=== PATIENT | male | born 1955 | race Caucasian/White ===

== ENCOUNTER 2016-12-12 22:33 | Emergency (ER) | payer MEDICAID ==
[~2016-12-12] VITALS: Ht 175.3 cm; Wt 77.0 kg
[~2016-12-12 22:33] MED LIST: ASPI-496 PO; CAPT12.52 PO; CAPT25TA3 PO; CLON0.5T PO; DIAZ5TAB PO; LOSA50TA2 PO; NEBI5TAB2 PO; OXYC10TA32 PO; OXYC15TA PO
[2016-12-12] MEDS ORDERED: CEPH-368 PO (22:48)
[2016-12-12] MEDS ORDERED: METH500T97 PO (22:48)
[2016-12-13 00:48] VITALS: BP 151/74
== END 2016-12-13 01:00 | disposition home or self-care (01) ==
LOC: ED 23:59
DX: M79.652 Pain in left thigh (principal); M79.651 Pain in right thigh; I10 Essential (primary) hypertension
CPT/HCPCS: 99284

== ENCOUNTER 2016-12-16 15:29 | Emergency (ER) | payer MEDICAID ==
[~2016-12-16] VITALS: Ht 175.3 cm; Wt 80.0 kg
[~2016-12-16 15:29] MED LIST changes: +CEPH-368 PO; +METH500T97 PO
[2016-12-16 15:36] VITALS: BP 156/92
[2016-12-16] MEDS ORDERED: OXYcodone/APAP 5/325MG TABLET ONE (15:43)
[2016-12-16] MEDS ORDERED: OXYcodone/APAP 5/325MG TABLET PO ONE (16:00)
== END 2016-12-16 17:02 | disposition home or self-care (01) ==
LOC: ED 16:50
DX: S33.5XXA Sprain of ligaments of lumbar spine, initial encounter (principal); I10 Essential (primary) hypertension; W19.XXXA Unspecified fall, initial encounter; Y93.89 Activity, other specified; Y99.8 Other external cause status; Y92.89 Other specified places as the place of occurrence of the external cause
CPT/HCPCS: 72110; 99284

== ENCOUNTER 2017-02-03 15:50 | Emergency (ER) | payer MEDICAID ==
[~2017-02-03] VITALS: Ht 175.3 cm; Wt 71.6 kg
[2017-02-03 16:09] VITALS: BP 152/108
[2017-02-03 17:08] LABS: BLOOD UREA NITROGEN 4 mg/dL (7-18)
[2017-02-03] MEDS ORDERED: OXYcodone/APAP 10/325MG TABLET PO ONE (18:30)
== END 2017-02-03 19:22 | disposition home or self-care (01) ==
LOC: ED 19:09
DX: I73.9 Peripheral vascular disease, unspecified (principal); I10 Essential (primary) hypertension; F17.200 Nicotine dependence, unspecified, uncomplicated; Z90.49 Acquired absence of other specified parts of digestive tract
CPT/HCPCS: 36415; 80048; 80307; 82040; 82330; 83735; 83880; 85025; 85730; 93005; 93970

== ENCOUNTER 2017-08-24 09:01 | Emergency (ER) | payer MEDICAID ==
[~2017-08-24] VITALS: Ht 172.7 cm; Wt 77.6 kg
[~2017-08-24 09:01] MED LIST changes: -OXYC10TA32 PO; +OXYC10TA47 PO
[2017-08-24] MEDS ORDERED: ONDANSETRON 2MG/ML, 2ML IVPush ONE (10:30)
[2017-08-24] MEDS ORDERED: MORPHINE SULFATE 4 MG/ML, 1ML IVPush PRN (10:30)
[2017-08-24] MEDS ORDERED: SODIUM CHLORIDE 0.9% 1,000ML IVBOLUS ONE (10:30)
[2017-08-24] MEDS ORDERED: ASPIRIN 81 MG TABLET CHEW PO ONE (10:30)
[2017-08-24] MEDS ORDERED: SODIUM CHLORIDE FLUSH 10ML SYR IVF ONE (10:30)
[2017-08-24] MEDS ORDERED: NITROGLYCERIN SINGLE TAB 0.4 MG SL ONE (10:40)
[2017-08-24] MEDS ORDERED: ASPIRIN 81 MG TABLET CHEW ONE (10:41)
[2017-08-24] MEDS ORDERED: MORPHINE SULFATE 4 MG/ML, 1ML ONE (10:41)
[2017-08-24] MEDS ORDERED: ONDANSETRON 2MG/ML, 2ML ONE (10:41)
[2017-08-24 10:44] LABS: BASOPHILS # (AUTO) 0.02 x10^3/uL (0-0.1); BASOPHILS % (AUTO) 0 % (0-1); EOSINOPHILS # (AUTO) 0.02 x10^3/uL (0-0.4); EOSINOPHILS % (AUTO) 0 % (1-7); LYMPHOCYTES # (AUTO) 1.57 x10^3/uL (1-3.4); LYMPHOCYTES % (AUTO) 22 % (22-44); MD NO; MEAN CORPUSCULAR HEMOGLOBIN 34.4 pg (27.5-34.5); MEAN CORPUSCULAR HGB CONC 34.6 g/dL (33.2-36.2); MEAN CORPUSCULAR VOLUME 99.3 fL (81-97); MEAN PLATELET VOLUME 6.6 fL (7.4-10.4); MONOCYTES # (AUTO) 0.51 x10^3/uL (0.2-0.8); MONOCYTES % (AUTO) 7 % (2-9); NEUTROPHILS # (AUTO) 4.91 x10^3/uL (1.8-6.8); NEUTROPHILS % (AUTO) 70 % (42-75); PLATELET COUNT 288 x10^3/uL (130-400); RED BLOOD COUNT 4.45 x10^6/uL (4.38-5.82); RED CELL DISTRIBUTION WIDTH 14.8 % (9.4-14.8)
[2017-08-24] MEDS: NITROGLYCERIN SINGLE TAB 0.4 MG SL PRN ×3 (10:47→11:16)
[2017-08-24 10:56] LABS: ALANINE AMINOTRANSFERASE 26 U/L (12-78); ALBUMIN 3.9 g/dL (3.4-5.0); ANION GAP 8 mmol/L (5-15); CALCIUM 8.1 mg/dL (8.5-10.1); CHLORIDE 95 mmol/L (98-107); CREATININE 0.47 mg/dL (0.7-1.3)
[2017-08-24 11:00] LABS: ALKALINE PHOSPHATASE 87 U/L (45-117); BILIRUBIN,TOTAL 0.7 mg/dL (0.2-1.0); TOTAL PROTEIN 7.1 g/dL (6.4-8.2); TROPONIN I < 0.015 ng/mL (0.000-0.045)
[2017-08-24] MEDS ORDERED: ALBUTEROL/IPRATROPIUM 2.5MG/0.5MG, 3 ML NPPB SCH (11:30)
[2017-08-24] MEDS ORDERED: ALBUTEROL/IPRATROPIUM 2.5MG/0.5MG, 3 ML ONE (11:47)
[2017-08-24 14:18] VITALS: BP 137/85
== END 2017-08-24 14:30 | disposition home or self-care (01) ==
LOC: ED 12:44 → EDIP 13:33 → UNDOADMIN 13:33 → ED 14:30
DX: R07.89 Other chest pain (principal); I10 Essential (primary) hypertension; E87.1 Hypo-osmolality and hyponatremia; I25.2 Old myocardial infarction; F11.10 Opioid abuse, uncomplicated; G62.9 Polyneuropathy, unspecified; F17.200 Nicotine dependence, unspecified, uncomplicated; Z90.49 Acquired absence of other specified parts of digestive tract
CPT/HCPCS: 36415; 71045; 80047; 80053; 83605; 84484; 85025; 93005; 94640; 96361; 96374; 96375; 99285; J2405; J7030; J7620

== ENCOUNTER 2018-02-22 14:42 | Inpatient (IN) | payer MEDICAID ==
[~2018-02-22] VITALS: Ht 175.3 cm; Wt 81.8 kg
[2018-02-22] MEDS ORDERED: ASPIRIN 81 MG TABLET CHEW PO ONE (15:00)
[2018-02-22 15:15] LABS: BASOPHILS # (AUTO) 0.04 x10^3/uL (0-0.1); BASOPHILS % (AUTO) 1 % (0-1); EOSINOPHILS # (AUTO) 0.04 x10^3/uL (0-0.4); EOSINOPHILS % (AUTO) 1 % (1-7); LYMPHOCYTES # (AUTO) 1.79 x10^3/uL (1-3.4); LYMPHOCYTES % (AUTO) 35 % (22-44); MD NO; MEAN CORPUSCULAR HEMOGLOBIN 34.6 pg (27.5-34.5); MEAN CORPUSCULAR HGB CONC 34.5 g/dL (33.2-36.2); MEAN CORPUSCULAR VOLUME 100.4 fL (81-97); MEAN PLATELET VOLUME 6.7 fL (7.4-10.4); MONOCYTES # (AUTO) 0.26 x10^3/uL (0.2-0.8); MONOCYTES % (AUTO) 5 % (2-9); NEUTROPHILS # (AUTO) 2.97 x10^3/uL (1.8-6.8); NEUTROPHILS % (AUTO) 58 % (42-75); PLATELET COUNT 201 x10^3/uL (130-400); RED BLOOD COUNT 4.59 x10^6/uL (4.38-5.82); RED CELL DISTRIBUTION WIDTH 14.9 % (9.4-14.8)
[2018-02-22 15:27] LABS: ALANINE AMINOTRANSFERASE 75 U/L (12-78); ALBUMIN 3.9 g/dL (3.4-5.0); ANION GAP 13 mmol/L (5-15); CALCIUM 8.6 mg/dL (8.5-10.1); CHLORIDE 106 mmol/L (98-107); CREATININE 0.86 mg/dL (0.7-1.3)
[2018-02-22] MEDS ORDERED: NITROGLYCERIN SINGLE TAB 0.4 MG SL PRN (15:30)
[2018-02-22 15:31] LABS: ALKALINE PHOSPHATASE 113 U/L (45-117); BILIRUBIN,TOTAL 0.6 mg/dL (0.2-1.0); TOTAL PROTEIN 7.2 g/dL (6.4-8.2); TROPONIN I < 0.015 ng/mL (0.000-0.045)
[2018-02-22] MEDS ORDERED: ASPIRIN 81 MG TABLET CHEW ONE (15:37)
[2018-02-22] MEDS ORDERED: NITROGLYCERIN SINGLE TAB 0.4 MG SL ONE (15:38)
[2018-02-22 15:40] LABS: INTERNATIONAL NORMALIZED RATIO 0.96 (0.93-1.1)
[2018-02-22] MEDS ORDERED: LISI-170 PO (15:46)
[2018-02-22] MEDS ORDERED: CHLO25CA9 PO (15:48)
[2018-02-22] MEDS ORDERED: OXYC20TA2 PO (15:48)
[2018-02-22] MEDS ORDERED: MORPHINE SULFATE 4 MG/ML, 1ML IVPush PRN ×2 (16:30→17:00)
[2018-02-22] MEDS ORDERED: SODIUM CHLORIDE 0.9% 1,000 ML IV SCH (16:42)
[2018-02-22] MEDS ORDERED: MORPHINE SULFATE 4 MG/ML, 1ML ONE (16:48)
[2018-02-22] MEDS ORDERED: ONDANSETRON 2MG/ML, 2ML ONE (16:53)
[2018-02-22] MEDS ORDERED: ONDANSETRON 2MG/ML, 2ML IVPush PRN (17:00)
[2018-02-22] MEDS ORDERED: NICOTINE 14MG/24 HR PATCH.TD24 TD SCH (17:00)
[2018-02-22] MEDS ORDERED: POTASSIUM CHLORIDE 20 MEQ, MAGNESIUM SULFATE 1 GM, THIAMINE 200 MG, FOLIC ACID 1 MG, MV... IV SCH (17:00)
[2018-02-22] MEDS ORDERED: ACETAMINOPHEN 325 MG TABLET PO PRN (17:00)
[2018-02-22] MEDS ORDERED: ONDANSETRON ODT 4 MG PO PRN (17:00)
[2018-02-22] MEDS ORDERED: MAALOX/HYOSCYAMINE/LIDOCAINE 45 ML BTL PO ONE (17:30)
[2018-02-22 17:41] LABS: FOLATE LEVEL 15.2 ng/mL (3.1-17.5)
[2018-02-22 18:13] VITALS: BP 161/92
[2018-02-22] MEDS ORDERED: OXYcodone IR 5MG TABLET ONE (18:16)
[2018-02-22] MEDS: HEPARIN 5,000 UNITS/ML, 1ML SQ SCH (18:23)
[2018-02-22] MEDS: OXYcodone IR 5MG TABLET PO PRN (18:23)
[2018-02-22] MEDS: SUCRALFATE 1 GM/10 ML UDC PO SCH ×2 (18:24→21:28)
[2018-02-22 18:27] VITALS: BP 161/92
[2018-02-22 19:02] VITALS: BP 156/91
[2018-02-22 19:38] LABS: TROPONIN I < 0.015 ng/mL (0.000-0.045)
[2018-02-22] MEDS: LORazepam 2 MG/ML, 1ML IVPush PRN (19:54)
[2018-02-22] MEDS: LISINOPRIL 20 MG TABLET PO SCH (20:09)
[2018-02-22] MEDS ORDERED: OxyconTIN ER 20 MG TAB.ER PO SCH (21:00)
[2018-02-23 01:15] VITALS: BP 138/81
[2018-02-23 01:37] LABS: TROPONIN I < 0.015 ng/mL (0.000-0.045)
[2018-02-23] MEDS: HEPARIN 5,000 UNITS/ML, 1ML SQ SCH ×2 (01:55→09:32)
[2018-02-23] MEDS: OXYcodone IR 5MG TABLET PO PRN ×2 (02:35→12:36)
[2018-02-23] MEDS: LORazepam 2 MG/ML, 1ML IVPush PRN ×2 (03:43→09:32)
[2018-02-23 05:44] LABS: BASOPHILS # (AUTO) 0.03 x10^3/uL (0-0.1); BASOPHILS % (AUTO) 1 % (0-1); EOSINOPHILS # (AUTO) 0.13 x10^3/uL (0-0.4); EOSINOPHILS % (AUTO) 2 % (1-7); LYMPHOCYTES # (AUTO) 2.75 x10^3/uL (1-3.4); LYMPHOCYTES % (AUTO) 40 % (22-44); MD NO; MEAN CORPUSCULAR HEMOGLOBIN 34.3 pg (27.5-34.5); MEAN CORPUSCULAR HGB CONC 33.9 g/dL (33.2-36.2); MEAN CORPUSCULAR VOLUME 101.1 fL (81-97); MEAN PLATELET VOLUME 7.4 fL (7.4-10.4); MONOCYTES # (AUTO) 0.26 x10^3/uL (0.2-0.8); MONOCYTES % (AUTO) 4 % (2-9); NEUTROPHILS # (AUTO) 3.65 x10^3/uL (1.8-6.8); NEUTROPHILS % (AUTO) 54 % (42-75); PLATELET COUNT 170 x10^3/uL (130-400); RED BLOOD COUNT 4.25 x10^6/uL (4.38-5.82); RED CELL DISTRIBUTION WIDTH 15.3 % (9.4-14.8)
[2018-02-23 05:52] LABS: ALBUMIN 3.3 g/dL (3.4-5.0); ANION GAP 8 mmol/L (5-15); CALCIUM 8.5 mg/dL (8.5-10.1); CHLORIDE 105 mmol/L (98-107)
[2018-02-23] MEDS ORDERED: ASPIRIN 325 MG TABLET EC PO SCH (06:00)
[2018-02-23 06:03] LABS: ALANINE AMINOTRANSFERASE 59 U/L (12-78); ALKALINE PHOSPHATASE 101 U/L (45-117); BILIRUBIN,TOTAL 0.4 mg/dL (0.2-1.0); CHOL/HDL RATIO 4.8; CHOLESTEROL, TOTAL 126 mg/dL (140-239); CREATININE 0.87 mg/dL (0.7-1.3); HDL CHOL % 21 % (26-37); HDL CHOLESTEROL (DIRECT) 26 mg/dL (40-60); LDL CHOLESTEROL,CALCULATED 23 mg/dL (54-169); LDL/HDL RATIO 0.9 (0.5-3.0); TOTAL PROTEIN 6.3 g/dL (6.4-8.2); TRIGLYCERIDES 386 mg/dL (50-200); VLDL CHOLESTEROL 77 mg/dL (0-25)
[2018-02-23 07:14] VITALS: BP 132/92
[2018-02-23] MEDS ORDERED: PANTOPROZOLE 40MG TABLET PO SCH (07:30)
[2018-02-23] MEDS: SUCRALFATE 1 GM/10 ML UDC PO SCH ×2 (07:41→11:32)
[2018-02-23] MEDS ORDERED: CHLORDIAZEPOXIDE 25 MG CAPSULE PO SCH (09:00)
[2018-02-23] MEDS ORDERED: REGADENOSON 0.4 MG/5 ML SYRINGE ONE (10:51)
[2018-02-23] MEDS: LISINOPRIL 20 MG TABLET PO SCH (12:35)
[2018-02-23] MEDS ORDERED: CLOP75TA52 PO (12:55)
[2018-02-23] MEDS ORDERED: CARV3.1212 PO (13:46)
[2018-02-23] MEDS ORDERED: ASPI-650 PO (13:46)
[2018-02-23] MEDS ORDERED: PANT40TA5 PO (13:46)
[2018-02-23] MEDS ORDERED: ATOR20TA9 PO (13:46)
[2018-02-23] MEDS ORDERED: SUCR1ORA5 PO (13:46)
[2018-02-23 14:02] VITALS: BP 129/89
[2018-02-23] MEDS ORDERED: CARVEDILOL 3.125 MG TABLET PO SCH (18:00)
[2018-02-23] MEDS ORDERED: ATORVASTATIN 20 MG TABLET PO SCH (21:00)
== END 2018-02-23 15:09 | disposition home or self-care (01) | DRG 392 ==
LOC: ED 16:41 → EDIP 16:42 → ED 17:13 → 5SO 17:54
PROVIDERS: ADMIT Hospitalist; ATTEND Hospitalist
DX: K21.9 Gastro-esophageal reflux disease without esophagitis (principal); E87.2 Acidosis; I25.110 Atherosclerotic heart disease of native coronary artery with unstable angina pectoris; D75.89 Other specified diseases of blood and blood-forming organs; F10.129 Alcohol abuse with intoxication, unspecified; G89.29 Other chronic pain; F41.9 Anxiety disorder, unspecified; I10 Essential (primary) hypertension; I45.10 Unspecified right bundle-branch block; I73.9 Peripheral vascular disease, unspecified; G62.9 Polyneuropathy, unspecified; F17.200 Nicotine dependence, unspecified, uncomplicated; I25.2 Old myocardial infarction; Z79.82 Long term (current) use of aspirin; Z82.49 Family history of ischemic heart disease and other diseases of the circulatory system; M54.12 Radiculopathy, cervical region
CPT/HCPCS: 36415; 71045; 78452; 80053; 80061; 80307; 82607; 82746; 83605; 83690; 83880; 84443; 84484; 85025; 85610; 85730; 93005; 93017; 96361; 96374; J1644; J2405; J2785; J3411; J3475; J3480; A9502; J2060; J7030

== ENCOUNTER 2018-05-17 12:36 | Emergency (ER) | payer MEDICAID ==
[~2018-05-17] VITALS: Ht 175.3 cm; Wt 80.5 kg
[~2018-05-17 12:36] MED LIST changes: +ASPI-650 PO; +ATOR20TA9 PO; +CARV3.1212 PO; +CHLO25CA9 PO; +CLOP75TA52 PO; +LISI-170 PO; +OXYC20TA2 PO; +PANT40TA5 PO; +SUCR1ORA5 PO
[2018-05-17 12:46] VITALS: BP 104/71
[2018-05-17 13:16] LABS: BASOPHILS # (AUTO) 0.04 x10^3/uL (0-0.1); BASOPHILS % (AUTO) 1 % (0-1); EOSINOPHILS % (AUTO) 2 % (1-7); LYMPHOCYTES # (AUTO) 1.38 x10^3/uL (1-3.4); LYMPHOCYTES % (AUTO) 29 % (22-44); MD NO; MEAN CORPUSCULAR HEMOGLOBIN 34.9 pg (27.5-34.5); MEAN CORPUSCULAR HGB CONC 34.1 g/dL (33.2-36.2); MEAN CORPUSCULAR VOLUME 102.6 fL (81-97); MEAN PLATELET VOLUME 6.7 fL (7.4-10.4); MONOCYTES # (AUTO) 0.39 x10^3/uL (0.2-0.8); MONOCYTES % (AUTO) 8 % (2-9); NEUTROPHILS # (AUTO) 2.93 x10^3/uL (1.8-6.8); NEUTROPHILS % (AUTO) 61 % (42-75); PLATELET COUNT 308 x10^3/uL (130-400); RED BLOOD COUNT 4.42 x10^6/uL (4.38-5.82); RED CELL DISTRIBUTION WIDTH 14.1 % (9.4-14.8)
[2018-05-17 13:26] LABS: INTERNATIONAL NORMALIZED RATIO 0.99 (0.93-1.1); PROTHROMBIN TIME 10.2 Seconds (9.6-11.5)
[2018-05-17 13:30] LABS: ALANINE AMINOTRANSFERASE 36 U/L (12-78); ALBUMIN 3.4 g/dL (3.4-5.0); ANION GAP 12 mmol/L (5-15); CALCIUM 8.1 mg/dL (8.5-10.1); CHLORIDE 105 mmol/L (98-107); CREATININE 0.61 mg/dL (0.7-1.3)
[2018-05-17 13:34] LABS: ALKALINE PHOSPHATASE 97 U/L (45-117); BILIRUBIN,TOTAL 0.3 mg/dL (0.2-1.0); TOTAL PROTEIN 6.8 g/dL (6.4-8.2); TROPONIN I < 0.015 ng/mL (0.000-0.045)
== END 2018-05-17 14:01 | disposition home or self-care (01) ==
LOC: ED 13:55
DX: G89.29 Other chronic pain (principal); M79.643 Pain in unspecified hand; M79.673 Pain in unspecified foot; I25.2 Old myocardial infarction; I25.10 Atherosclerotic heart disease of native coronary artery without angina pectoris; I73.9 Peripheral vascular disease, unspecified; I10 Essential (primary) hypertension; I77.9 Disorder of arteries and arterioles, unspecified; Z90.49 Acquired absence of other specified parts of digestive tract; Z79.899 Other long term (current) drug therapy
CPT/HCPCS: 36415; 71045; 80053; 80307; 83880; 84484; 85025; 85610; 93005; 99285

== ENCOUNTER 2018-08-07 14:52 | Observation (INO) | payer MEDICAID ==
[~2018-08-07] VITALS: Ht 175.3 cm; Wt 78.9 kg
[~2018-08-07 14:52] MED LIST changes: +ATOR20TA37 PO; -ATOR20TA9 PO; -NEBI5TAB2 PO; +NEBI5TAB3 PO
[2018-08-07] MEDS ORDERED: CLOP75TA52 PO (15:41)
[2018-08-07] MEDS ORDERED: LISI-167 PO (15:42)
[2018-08-07] MEDS ORDERED: MORPHINE SULFATE 4 MG/ML, 1ML ONE ×2 (15:53→17:23)
[2018-08-07] MEDS: MORPHINE SULFATE 4 MG/ML, 1ML IVPush PRN ×2 (15:57→17:26)
[2018-08-07 16:11] LABS: BASOPHILS # (AUTO) 0.04 x10^3/uL (0-0.1); BASOPHILS % (AUTO) 1 % (0-1); EOSINOPHILS # (AUTO) 0.04 x10^3/uL (0-0.4); EOSINOPHILS % (AUTO) 1 % (1-7); LYMPHOCYTES # (AUTO) 1.51 x10^3/uL (1-3.4); LYMPHOCYTES % (AUTO) 25 % (22-44); MD NO; MEAN CORPUSCULAR HEMOGLOBIN 33.5 pg (27.5-34.5); MEAN CORPUSCULAR HGB CONC 33.6 g/dL (33.2-36.2); MEAN CORPUSCULAR VOLUME 99.8 fL (81-97); MEAN PLATELET VOLUME 6.8 fL (7.4-10.4); MONOCYTES # (AUTO) 0.31 x10^3/uL (0.2-0.8); MONOCYTES % (AUTO) 5 % (2-9); NEUTROPHILS # (AUTO) 4.22 x10^3/uL (1.8-6.8); NEUTROPHILS % (AUTO) 69 % (42-75); PLATELET COUNT 274 x10^3/uL (130-400); RED BLOOD COUNT 4.48 x10^6/uL (4.38-5.82); RED CELL DISTRIBUTION WIDTH 15.7 % (9.4-14.8)
[2018-08-07 16:22] LABS: ALBUMIN 4.1 g/dL (3.4-5.0); ANION GAP 7 mmol/L (5-15); CALCIUM 8.2 mg/dL (8.5-10.1); CHLORIDE 105 mmol/L (98-107); CREATININE 0.72 mg/dL (0.7-1.3)
[2018-08-07 16:26] LABS: TROPONIN I < 0.015 ng/mL (0.000-0.045)
[2018-08-07] MEDS ORDERED: FUROSEMIDE 40 MG/4 ML IV ONE (17:00)
[2018-08-07] MEDS ORDERED: FUROSEMIDE 20 MG/2 ML ONE (17:20)
[2018-08-07] MEDS ORDERED: LIDODERM 5% PATCH TD ONE (18:30)
[2018-08-07] MEDS ORDERED: ACETAMINOPHEN 325 MG TABLET PO PRN (18:30)
[2018-08-07] MEDS ORDERED: DIPHENHYDRAMINE 25 MG CAPSULE PO PRN (18:30)
[2018-08-07] MEDS ORDERED: ENALAPRILAT 1.25 MG/ML, 2ML IVPush PRN (18:30)
[2018-08-07] MEDS ORDERED: DOCUSATE 100 MG CAPSULE PO PRN (18:30)
[2018-08-07 19:11] VITALS: BP 92/67
[2018-08-07 19:45] VITALS: BP 105/70
[2018-08-07] MEDS ORDERED: NITROGLYCERIN 0.4 MG BOTTLE (25 TABS) SL PRN (20:00)
[2018-08-07] MEDS ORDERED: NITROGLYCERIN 0.4 MG/SPRAY SL PRN (20:00)
[2018-08-07] MEDS ORDERED: OMNIPAQUE 350 MG/ML, 100ML BOTTLE ONE (20:40)
[2018-08-07 22:24] VITALS: BP 105/70
[2018-08-07 22:37] LABS: TROPONIN I < 0.015 ng/mL (0.000-0.045)
[2018-08-08] VITALS: BP 138/88
[2018-08-08] MEDS ORDERED: ENOXAPARIN 40 MG/0.4 ML SQ SCH
[2018-08-08] MEDS ORDERED: LISINOPRIL 10 MG TABLET PO SCH (09:00)
[2018-08-08] MEDS ORDERED: CHLORDIAZEPOXIDE 25 MG CAPSULE PO SCH (09:00)
[2018-08-08] MEDS ORDERED: CLOPIDOGREL 75 MG TABLET PO SCH (09:00)
== END 2018-08-08 01:27 | disposition left against medical advice (07) ==
LOC: ED 15:10 → EDIP 17:21 → 5SO 18:23
PROVIDERS: ADMIT Internal Medicine; ATTEND Internal Medicine
DX: R07.89 Other chest pain (principal); I11.9 Hypertensive heart disease without heart failure; F10.229 Alcohol dependence with intoxication, unspecified; I73.9 Peripheral vascular disease, unspecified; E78.5 Hyperlipidemia, unspecified; I25.2 Old myocardial infarction; F17.210 Nicotine dependence, cigarettes, uncomplicated; F33.9 Major depressive disorder, recurrent, unspecified; Z80.0 Family history of malignant neoplasm of digestive organs; Z82.49 Family history of ischemic heart disease and other diseases of the circulatory system
CPT/HCPCS: 36415; 71045; 71275; 80048; 82040; 83880; 84484; 85025; 85379; 93005; 93971; 96372; 96374; 96375; 96376; 99284; G0378; J1650; J1940; Q9967

== ENCOUNTER 2018-10-13 19:47 | Emergency (ER) | payer MEDICAID ==
[~2018-10-13] VITALS: Ht 175.3 cm; Wt 78.8 kg
[~2018-10-13 19:47] MED LIST changes: +LISI-167 PO
[2018-10-13] MEDS ORDERED: OXYC20TA2 PO (20:14)
[2018-10-13] MEDS ORDERED: KLONOPIN (20:14)
--- NOTE | 2018-10-13 20:16 | NUR ---
PT WAS AMBULATORY TO ED ROOM 26. A&OX4, RESP EVEN & UNLABORED, SPEECH CLEAR. STRONG ODOR OF TOBACCO SMOKE. C/O PAIN TO LT FOOT. BOTH FEET VERY DIRTY. PT STATES "IT HURTS TOO MUCH AND I CAN'T PUT WATER ON IT. I HAVEN'T HAD A SHOWER IN 4 DAYS." LT PEDAL EDEMA, PEDAL PULSE DIMINISHED. SURGICAL SCARS TO RT INNER THIGH, LT INNER THIGH, LT INNER CALF.
[2018-10-13] MEDS ORDERED: KETOROLAC 30 MG/1 ML IM ONE (20:30)
[2018-10-13] MEDS ORDERED: KETOROLAC 30 MG/1 ML ONE (20:59)
--- NOTE | 2018-10-13 21:04 | NUR ---
PT SITTING QUIETLY ON GURNEY, WATCHING TV. FRIEND IN ROOM. TORADOL GIVEN PER EMAR. PT AWAITING U/S.
[2018-10-13 21:07] VITALS: BP 130/84
--- NOTE | 2018-10-13 21:08 | NUR ---
PT TO U/S PER RYAN.
== END 2018-10-13 21:55 | disposition home or self-care (01) ==
LOC: ED 20:18
DX: G89.29 Other chronic pain (principal); M25.572 Pain in left ankle and joints of left foot; M79.662 Pain in left lower leg; G62.9 Polyneuropathy, unspecified; I25.2 Old myocardial infarction; I10 Essential (primary) hypertension; F17.210 Nicotine dependence, cigarettes, uncomplicated; Z90.49 Acquired absence of other specified parts of digestive tract
CPT/HCPCS: 93971; 96372; 99284; J1885

== ENCOUNTER 2019-10-07 11:47 | Emergency (ER) | payer MEDICAID ==
[~2019-10-07] VITALS: Ht 177.8 cm; Wt 85.0 kg
[~2019-10-07 11:47] MED LIST changes: +KLONOPIN
[2019-10-07 11:55] VITALS: BP 185/96
[2019-10-07 12:51] LABS: BASOPHILS # (AUTO) 0.04 x10^3/uL (0-0.1); BASOPHILS % (AUTO) 1 % (0-1); EOSINOPHILS # (AUTO) 0.06 x10^3/uL (0-0.4); EOSINOPHILS % (AUTO) 1 % (1-7); LYMPHOCYTES # (AUTO) 1.73 x10^3/uL (1-3.4); LYMPHOCYTES % (AUTO) 29 % (22-44); MD NO; MEAN CORPUSCULAR HEMOGLOBIN 33.8 pg (27.5-34.5); MEAN CORPUSCULAR HGB CONC 33.9 g/dL (33.2-36.2); MEAN CORPUSCULAR VOLUME 99.8 fL (81-97); MEAN PLATELET VOLUME 6.6 fL (7.4-10.4); MONOCYTES # (AUTO) 0.41 x10^3/uL (0.2-0.8); MONOCYTES % (AUTO) 7 % (2-9); NEUTROPHILS % (AUTO) 62 % (42-75); PLATELET COUNT 271 x10^3/uL (130-400); RED BLOOD COUNT 4.85 x10^6/uL (4.38-5.82); RED CELL DISTRIBUTION WIDTH 14.9 % (9.4-14.8)
[2019-10-07 12:55] LABS: ANION GAP 10 mmol/L (5-15); CALCIUM 8.8 mg/dL (8.5-10.1); CHLORIDE 98 mmol/L (98-107); CREATININE 0.82 mg/dL (0.7-1.3)
--- NOTE | 2019-10-07 13:10 | NUR ---
PT CAME IN CO OF OF PAIN ON HIS LEFT LEG WHERE HE HAD A BKA ON July. PT WONT LET ME EXAMINE LEG UNTIL HE GETS PAIN MEDS HE SAYS. ACCOMPANIED BY . CALL LIGHT WITHIN REACH
[2019-10-07] MEDS ORDERED: ACETAMINOPHEN 325 MG TABLET ONE (13:40)
--- NOTE | 2019-10-07 13:43 | NUR ---
PT COMPLAINING OF PAIN. PT REFUSED TYLENOL. PT REFUSES TO TAKE SOCKS OFF UNTIL HE GETS PAIN MEDS
[2019-10-07] MEDS ORDERED: HYDROcodone/APAP 5/325 TABLET ONE (13:55)
[2019-10-07] MEDS ORDERED: HYDROcodone/APAP 5/325 TABLET PO ONE (14:00)
[2019-10-07] MEDS ORDERED: ACETAMINOPHEN 325 MG TABLET PO ONE (14:00)
== END 2019-10-07 15:13 | disposition home or self-care (01) ==
LOC: ED 15:00
DX: L03.116 Cellulitis of left lower limb (principal); I10 Essential (primary) hypertension; J44.9 Chronic obstructive pulmonary disease, unspecified; I25.2 Old myocardial infarction; Z90.49 Acquired absence of other specified parts of digestive tract; Z89.512 Acquired absence of left leg below knee
CPT/HCPCS: 36415; 80048; 85025; 99284

== ENCOUNTER 2019-10-18 10:43 | Emergency (ER) | payer MEDICAID ==
[~2019-10-18] VITALS: Ht 177.8 cm; Wt 84.0 kg
[2019-10-18 11:37] VITALS: BP 165/94
== END 2019-10-18 12:26 | disposition home or self-care (01) ==
LOC: ED 11:50
DX: S81.012D Laceration without foreign body, left knee, subsequent encounter (principal); Z89.512 Acquired absence of left leg below knee; X58.XXXD Exposure to other specified factors, subsequent encounter
CPT/HCPCS: 99281

== ENCOUNTER 2019-11-11 11:42 | Inpatient (IN) | payer MEDICAID ==
[~2019-11-11] VITALS: Ht 177.8 cm; Wt 93.9 kg
[2019-11-11] MEDS ORDERED: SODIUM CHLORIDE FLUSH 10ML SYR IVF ONE (12:30)
[2019-11-11 12:42] LABS: BASOPHILS # (AUTO) 0.07 x10^3/uL (0-0.1); BASOPHILS % (AUTO) 1 % (0-1); EOSINOPHILS # (AUTO) 0.07 x10^3/uL (0-0.4); EOSINOPHILS % (AUTO) 1 % (1-7); LYMPHOCYTES # (AUTO) 1.68 x10^3/uL (1-3.4); LYMPHOCYTES % (AUTO) 23 % (22-44); MD NO; MEAN CORPUSCULAR HEMOGLOBIN 34.6 pg (27.5-34.5); MEAN CORPUSCULAR HGB CONC 33.8 g/dL (33.2-36.2); MEAN CORPUSCULAR VOLUME 102.2 fL (81-97); MEAN PLATELET VOLUME 6.4 fL (7.4-10.4); MONOCYTES # (AUTO) 0.44 x10^3/uL (0.2-0.8); MONOCYTES % (AUTO) 6 % (2-9); NEUTROPHILS # (AUTO) 5.12 x10^3/uL (1.8-6.8); NEUTROPHILS % (AUTO) 70 % (42-75); PLATELET COUNT 312 x10^3/uL (130-400); RED BLOOD COUNT 4.83 x10^6/uL (4.38-5.82); RED CELL DISTRIBUTION WIDTH 14.8 % (9.4-14.8)
--- NOTE | 2019-11-11 12:45 | NUR ---
PT TO ROOM PER WHEELCHAIR. PT C/O SEVERE PAIN IN RIGHT LOWER EXTREMITY. PT HAS A HISTORY OF PAD, AND BLOOD CLOT IN RIGHT LOWER LEG. EXTREMITY IS COOL AND MOTTLED, UNABLE TO PALPATE PULSES IN DP/PT OR POPLITEAL. UNABLE TO ASSESS PULSES USING DOPPLER IN POPLITEAL, DP AND PT. RIGHT AND LEFT FEMORAL PULSES ARE PALPABLE. PT IS A/OX4, WITH FROM LEN. IN TO ASSESS PATIENT.
[2019-11-11 12:50] LABS: INTERNATIONAL NORMALIZED RATIO 0.97 (0.93-1.1); PROTHROMBIN TIME 10.3 Seconds (9.6-11.5)
[2019-11-11 12:51] LABS: ALBUMIN 3.5 g/dL (3.4-5.0); ANION GAP 6 mmol/L (5-15); CALCIUM 9.1 mg/dL (8.5-10.1); CHLORIDE 104 mmol/L (98-107); CREATININE 0.68 mg/dL (0.7-1.3)
[2019-11-11] MEDS ORDERED: HYDROmorphone 2 MG/ML, 1ML ONE (12:57)
[2019-11-11] MEDS: HYDROmorphone 1 MG/ML, 1ML INJ IVPush PRN ×2 (13:40→13:58)
--- NOTE | 2019-11-11 13:45 | NUR ---
IV PLACED WITHOUT DIFF. IV PAIN MEDICATION GIVEN. SOCIAL CALLED TO INFORM STAFF THAT THE COMMUNITY DOES NOT HAVE PLACEMENT FOR THIS PATIENT IN HIS CONDITION. US OF LOWER LEG COMPLETED. MD IN TO ASSESS PATIENT. FRIEND IN ROOM TO SEE PATIENT.
[2019-11-11] MEDS ORDERED: HEPARIN 5,000 UNITS/ML, 1ML IV ONE (14:00)
[2019-11-11] MEDS ORDERED: HEPARIN 25,000 UNITS/250ML PMX 250 ML IV PRN (14:00)
--- NOTE | 2019-11-11 14:00 | NUR ---
SECOND DOSE OF DILAUDID GIVEN. ADMITTING MD AT BEDSIDE FOR EXAMINATION.
[2019-11-11] MEDS ORDERED: METOCLOPRAMIDE 5 MG/ML, 2ML IVPush PRN (14:30)
[2019-11-11] MEDS ORDERED: ONDANSETRON ODT 4 MG PO PRN (14:30)
[2019-11-11] MEDS ORDERED: hydrALAzine 20 MG/ML, 1ML IVPush PRN (14:30)
[2019-11-11] MEDS ORDERED: BACLOFEN 10 MG TABLET PO PRN (14:30)
[2019-11-11] MEDS ORDERED: ONDANSETRON 2MG/ML, 2ML IVPush PRN (14:30)
[2019-11-11] MEDS ORDERED: OXYcodone IR 5MG TABLET ONE ×2 (15:21→15:35)
[2019-11-11] MEDS: OXYcodone IR 5MG TABLET PO PRN ×3 (15:23→23:29)
--- NOTE | 2019-11-11 15:24 | NUR ---
ANSWERED CALL LIGHT. PATIENT REQUESTING PAIN MED FOR 10/10 RLE PAIN. MEDICATED PER EMAR.
[2019-11-11] MEDS ORDERED: HYDROmorphone 1 MG/ML, 1ML INJ ONE (15:35)
--- NOTE | 2019-11-11 15:57 | NUR ---
REPORT TO GEORGIE CAMARGO. PT READY FOR TRANSPORT.
[2019-11-11 16:16] VITALS: BP 150/84
[2019-11-11] MEDS: HYDROmorphone 2 MG/ML, 1ML IVPush PRN ×2 (18:41→21:58)
[2019-11-11] MEDS: NS + 20MEQ KCL 1,000 ML IV SCH (18:42)
[2019-11-11 18:51] VITALS: BP 143/86
[2019-11-11] MEDS: ACETAMINOPHEN 325 MG TABLET PO PRN (19:24)
[2019-11-11] MEDS ORDERED: APIX5TAB PO (19:38)
[2019-11-11] MEDS: NICOTINE 14MG/24 HR PATCH.TD24 TD SCH (21:30)
[2019-11-12 00:04] VITALS: BP 121/83
[2019-11-12] MEDS: HEPARIN 5,000 UNITS/ML, 1ML IV PRN ×2 (01:30→08:40)
[2019-11-12] MEDS: HYDROmorphone 2 MG/ML, 1ML IVPush PRN ×2 (02:24→05:20)
[2019-11-12 07:19] VITALS: BP 126/83
[2019-11-12 07:36] LABS: BASOPHILS # (AUTO) 0.05 x10^3/uL (0-0.1); BASOPHILS % (AUTO) 1 % (0-1); EOSINOPHILS # (AUTO) 0.12 x10^3/uL (0-0.4); EOSINOPHILS % (AUTO) 2 % (1-7); LYMPHOCYTES # (AUTO) 2.42 x10^3/uL (1-3.4); LYMPHOCYTES % (AUTO) 36 % (22-44); MD NO; MEAN CORPUSCULAR HEMOGLOBIN 34.9 pg (27.5-34.5); MEAN CORPUSCULAR HGB CONC 33.9 g/dL (33.2-36.2); MEAN PLATELET VOLUME 6.3 fL (7.4-10.4); MONOCYTES # (AUTO) 0.42 x10^3/uL (0.2-0.8); MONOCYTES % (AUTO) 6 % (2-9); NEUTROPHILS # (AUTO) 3.74 x10^3/uL (1.8-6.8); NEUTROPHILS % (AUTO) 55 % (42-75); PLATELET COUNT 292 x10^3/uL (130-400); RED BLOOD COUNT 4.44 x10^6/uL (4.38-5.82); RED CELL DISTRIBUTION WIDTH 15.1 % (9.4-14.8)
[2019-11-12 07:49] LABS: ANION GAP 5 mmol/L (5-15); CALCIUM 8.1 mg/dL (8.5-10.1); CHLORIDE 107 mmol/L (98-107); CREATININE 0.65 mg/dL (0.7-1.3)
[2019-11-12 08:15] LABS: CHOL/HDL RATIO 4.4; CHOLESTEROL, TOTAL 148 mg/dL (140-239); HDL CHOL % 23 % (26-37); HDL CHOLESTEROL (DIRECT) 34 mg/dL (40-60); LDL CHOLESTEROL,CALCULATED 83 mg/dL (54-169); LDL/HDL RATIO 2.4 (0.5-3.0); TRIGLYCERIDES 157 mg/dL (50-200); VLDL CHOLESTEROL 31 mg/dL (0-25)
[2019-11-12 09:22] VITALS: BP 128/85
[2019-11-12] MEDS: OXYcodone IR 5MG TABLET PO PRN (09:23)
[2019-11-12] MEDS: LISINOPRIL 10 MG TABLET PO SCH (09:24)
[2019-11-12] MEDS ORDERED: PROTAMINE SULFATE 10 MG/ML, 5ML ONE (10:12)
[2019-11-12] MEDS ORDERED: BACITRACIN 50,000 UNIT ONE (10:13)
[2019-11-12] MEDS ORDERED: HEPARIN 1,000 UNITS/ML, 10ML ONE (10:13)
[2019-11-12] MEDS ORDERED: THROMBIN 5,000 UNIT VIAL TP ONE (10:13)
[2019-11-12] MEDS: NS + 20MEQ KCL 1,000 ML IV SCH (11:22)
[2019-11-12] MEDS ORDERED: MIDAZOLAM 1 MG/ML, 2ML ONE (11:50)
[2019-11-12] MEDS ORDERED: ROCURONIUM 10MG/ML,5ML ONE (11:50)
[2019-11-12] MEDS ORDERED: DEXAMETHASONE 4 MG/ML, 1ML ONE (11:50)
[2019-11-12] MEDS ORDERED: PROPOFOL 10 MG/ML, 20ML ONE (11:50)
[2019-11-12] MEDS ORDERED: LIDOCAINE-MPF 2% ,5ML ONE (11:50)
[2019-11-12] MEDS ORDERED: FENTANYL PF 250 MCG/5ML ONE (11:50)
[2019-11-12] MEDS ORDERED: ONDANSETRON 2MG/ML, 2ML ONE (12:07)
[2019-11-12] MEDS ORDERED: SUCCINYLCHOLINE 20 MG/ML, 10ML ONE (12:07)
[2019-11-12] MEDS ORDERED: SUGAMMADEX 200 MG/2 ML IVPush ONE (12:07)
[2019-11-12] MEDS ORDERED: PHENYLEPHRINE 10 MG/ML ONE (12:07)
[2019-11-12] MEDS: HYDROmorphone 1 MG/ML, 1ML INJ IV PRN ×3 (15:10→15:40)
[2019-11-12] MEDS ORDERED: HYDROmorphone 2 MG/ML, 1ML ONE (15:19)
[2019-11-12] MEDS ORDERED: ACETAMINOPHEN 325 MG TABLET PO PRN (15:30)
[2019-11-12] MEDS ORDERED: OXYcodone 5 MG/5 ML ORAL.SOL UDC PO PRN (15:30)
[2019-11-12] MEDS ORDERED: ONDANSETRON 2MG/ML, 2ML IV PRN (15:30)
[2019-11-12] MEDS ORDERED: FENTANYL PF 100 MCG/2ML IV PRN (15:30)
[2019-11-12] MEDS ORDERED: LABETALOL 5MG/ML, 20ML IV PRN (15:30)
[2019-11-12] MEDS ORDERED: LORazepam 2 MG/ML, 1ML IVPush PRN (15:30)
[2019-11-12] MEDS ORDERED: MEPERIDINE/PF 25MG/ML,1ML IVPush PRN (15:30)
[2019-11-12] MEDS ORDERED: OXYcodone 5 MG/5 ML ORAL.SOL UDC ONE (15:40)
[2019-11-12] MEDS ORDERED: LABETALOL 5MG/ML, 20ML IVPush PRN (17:00)
[2019-11-12] MEDS ORDERED: NITROPRUSSIDE 50 MG in SODIUM CHLORIDE 0.9% 248 ML IV PRN (17:00)
[2019-11-12] MEDS: ENOXAPARIN 30 MG/0.3 ML SQ SCH (17:00)
[2019-11-12] MEDS: LACTATED RINGERS 1,000 ML IV SCH (17:28)
[2019-11-12] MEDS ORDERED: KETOROLAC 30 MG/1 ML ONE (18:54)
[2019-11-12] MEDS: KETOROLAC 30 MG/1 ML IVPush PRN (18:57)
[2019-11-12] MEDS: CEFAZOLIN PMX 1GM/50ML 50 ML IVPB SCH (19:56)
[2019-11-12] MEDS: ALBUTEROL SULFATE 2.5 MG/3 ML NPPB PRN (20:00)
[2019-11-12] MEDS ORDERED: LORazepam 2 MG/ML, 1ML IVPush ONE (20:00)
[2019-11-12] MEDS: NICOTINE 14MG/24 HR PATCH.TD24 TD SCH (20:41)
[2019-11-13] MEDS: KETOROLAC 30 MG/1 ML IVPush PRN ×2 (01:07→15:41)
[2019-11-13] MEDS: CEFAZOLIN PMX 1GM/50ML 50 ML IVPB SCH (03:39)
[2019-11-13 04:38] LABS: BASOPHILS # (AUTO) 0.03 x10^3/uL (0-0.1); BASOPHILS % (AUTO) 0 % (0-1); EOSINOPHILS % (AUTO) 0 % (1-7); LYMPHOCYTES # (AUTO) 0.82 x10^3/uL (1-3.4); LYMPHOCYTES % (AUTO) 10 % (22-44); MD NO; MEAN CORPUSCULAR HEMOGLOBIN 34.3 pg (27.5-34.5); MEAN CORPUSCULAR HGB CONC 33.3 g/dL (33.2-36.2); MEAN CORPUSCULAR VOLUME 103.1 fL (81-97); MEAN PLATELET VOLUME 6.6 fL (7.4-10.4); MONOCYTES # (AUTO) 0.43 x10^3/uL (0.2-0.8); MONOCYTES % (AUTO) 5 % (2-9); NEUTROPHILS # (AUTO) 7.37 x10^3/uL (1.8-6.8); NEUTROPHILS % (AUTO) 85 % (42-75); PLATELET COUNT 268 x10^3/uL (130-400); RED BLOOD COUNT 4.09 x10^6/uL (4.38-5.82); RED CELL DISTRIBUTION WIDTH 15.2 % (9.4-14.8)
[2019-11-13 04:43] LABS: ANION GAP 4 mmol/L (5-15); CALCIUM 8.3 mg/dL (8.5-10.1); CHLORIDE 103 mmol/L (98-107); CREATININE 0.72 mg/dL (0.7-1.3)
[2019-11-13 05:00] VITALS: BP 106/62
[2019-11-13] MEDS: LACTATED RINGERS 1,000 ML IV SCH (06:38)
[2019-11-13] MEDS: LISINOPRIL 10 MG TABLET PO SCH (07:46)
[2019-11-13] MEDS: ENOXAPARIN 30 MG/0.3 ML SQ SCH (08:25)
[2019-11-13] MEDS: METHYLNALTREXONE 12 MG/0.6 ML SYR SQ SCH (08:26)
[2019-11-13] MEDS: OXYcodone IR 5MG TABLET PO PRN ×4 (10:13→21:42)
[2019-11-13] MEDS: HYDROmorphone 2 MG/ML, 1ML IVPush PRN ×2 (13:41→20:03)
[2019-11-13] MEDS ORDERED: OMNIPAQUE 350 MG/ML, 150 ML BOTTLE ONE (13:43)
[2019-11-13] MEDS ORDERED: HEPARIN 25,000 UNITS/250ML PMX 250 ML ONE (15:35)
[2019-11-13] MEDS ORDERED: HEPARIN 25,000 UNITS/250ML PMX 250 ML IV PRN (16:00)
[2019-11-13] MEDS ORDERED: HEPARIN 5,000 UNITS/ML, 1ML IV ONE (16:00)
[2019-11-13 16:40] VITALS: BP 127/80
[2019-11-13] MEDS: ALBUTEROL SULFATE 2.5 MG/3 ML NPPB PRN (17:35)
[2019-11-13 20:07] VITALS: BP 125/84
[2019-11-13] MEDS: NICOTINE 14MG/24 HR PATCH.TD24 TD SCH (21:42)
[2019-11-13] MEDS: ACETAMINOPHEN 325 MG TABLET PO PRN (21:42)
[2019-11-14] MEDS: KETOROLAC 30 MG/1 ML IVPush PRN ×2 (00:40→09:35)
[2019-11-14] MEDS: HYDROmorphone 2 MG/ML, 1ML IVPush PRN ×4 (00:40→18:14)
[2019-11-14] MEDS ORDERED: CALCIUM CARBONATE 500 MG TAB.CHEW PO PRN (01:00)
[2019-11-14] MEDS ORDERED: LORazepam 0.5MG TABLET PO ONE (01:00)
[2019-11-14] MEDS: HEPARIN 5,000 UNITS/ML, 1ML IV PRN ×2 (01:11→09:32)
[2019-11-14 01:30] VITALS: BP 118/86
[2019-11-14] MEDS: OXYcodone IR 5MG TABLET PO PRN ×5 (01:48→20:10)
[2019-11-14 07:33] VITALS: BP 145/85
[2019-11-14] MEDS: LISINOPRIL 10 MG TABLET PO SCH (09:35)
[2019-11-14] MEDS ORDERED: APIXABAN 5 MG TABLET ONE (11:02)
[2019-11-14] MEDS: RIVAROXABAN 10 MG TABLET PO SCH (11:21)
[2019-11-14 14:48] VITALS: BP 144/95
[2019-11-14] MEDS: ALBUTEROL SULFATE 2.5 MG/3 ML NPPB PRN (18:57)
[2019-11-14] MEDS: SODIUM CHLORIDE 0.9% 1,000 ML IV SCH (20:00)
[2019-11-14] MEDS ORDERED: HYDROmorphone 2 MG/ML, 1ML IVPush PRN (20:00)
[2019-11-14] MEDS: ACETAMINOPHEN 325 MG TABLET PO PRN (20:10)
[2019-11-14] MEDS: NICOTINE 14MG/24 HR PATCH.TD24 TD SCH (20:11)
[2019-11-14 20:17] VITALS: BP 133/80
[2019-11-14] MEDS ORDERED: OXYcodone IR 5MG TABLET PO PRN (20:30)
[2019-11-15 02:15] VITALS: BP 151/91
[2019-11-15] MEDS: ACETAMINOPHEN 325 MG TABLET PO PRN (02:40)
[2019-11-15] MEDS: OXYcodone IR 5MG TABLET PO PRN ×2 (02:41→09:57)
[2019-11-15 05:58] LABS: ANION GAP 4 mmol/L (5-15); CALCIUM 8.7 mg/dL (8.5-10.1); CHLORIDE 102 mmol/L (98-107)
[2019-11-15 06:01] LABS: CREATININE 0.56 mg/dL (0.7-1.3)
[2019-11-15 06:45] VITALS: BP 145/93
[2019-11-15] MEDS: METHYLNALTREXONE 12 MG/0.6 ML SYR SQ SCH (07:57)
[2019-11-15] MEDS: RIVAROXABAN 10 MG TABLET PO SCH (07:57)
[2019-11-15] MEDS: LISINOPRIL 10 MG TABLET PO SCH (07:58)
[2019-11-15] MEDS: SODIUM CHLORIDE 0.9% 1,000 ML IV SCH (09:20)
[2019-11-15] MEDS ORDERED: BACL-19 PO (12:08)
[2019-11-15] MEDS ORDERED: RIVA10TA2 PO (12:08)
[2019-11-15] MEDS ORDERED: OXYC5TAB3 PO (12:08)
== END 2019-11-15 13:42 | disposition home or self-care (01) | DRG 169 ==
LOC: ED 12:24 → SUATTDRO 13:52 → EDIP 13:59 → 4NE 16:05 → CCU 11-12 16:19 → 4NE 11-13 16:30
PROVIDERS: ADMIT Hospitalist; ATTEND Internal Medicine
PROC: 04100JH Bypass Abdominal Aorta to Right Femoral Artery with Synthetic Substitute, Open Approach (ICD-10-PCS; principal; 2019-11-12 12:00)
PROC: 04CK0ZZ Extirpation of Matter from Right Femoral Artery, Open Approach (ICD-10-PCS; 2019-11-12 12:00)
DX: T82.898A Other specified complication of vascular prosthetic devices, implants and grafts, initial encounter (principal); I74.5 Embolism and thrombosis of iliac artery; J44.9 Chronic obstructive pulmonary disease, unspecified; D75.89 Other specified diseases of blood and blood-forming organs; E87.1 Hypo-osmolality and hyponatremia; F17.210 Nicotine dependence, cigarettes, uncomplicated; F32.9 Major depressive disorder, single episode, unspecified; F41.9 Anxiety disorder, unspecified; G89.29 Other chronic pain; I10 Essential (primary) hypertension; I25.10 Atherosclerotic heart disease of native coronary artery without angina pectoris; I70.202 Unspecified atherosclerosis of native arteries of extremities, left leg; I99.8 Other disorder of circulatory system; M48.061 Spinal stenosis, lumbar region without neurogenic claudication; Y83.2 Surgical operation with anastomosis, bypass or graft as the cause of abnormal reaction of the patient, or of later complication, without mention of misadventure at the time of the procedure; Z79.891 Long term (current) use of opiate analgesic; I25.2 Old myocardial infarction; Z79.01 Long term (current) use of anticoagulants; Z82.49 Family history of ischemic heart disease and other diseases of the circulatory system; Z91.14 Patient's other noncompliance with medication regimen; Z91.19 Patient's noncompliance with other medical treatment and regimen; Z89.512 Acquired absence of left leg below knee; Z95.1 Presence of aortocoronary bypass graft; Z90.49 Acquired absence of other specified parts of digestive tract; Z88.8 Allergy status to other drugs, medicaments and biological substances; Y92.89 Other specified places as the place of occurrence of the external cause
CPT/HCPCS: 36415; 74018; 75635; 75710; 80048; 80061; 82040; 82607; 84443; 85025; 85520; 85610; 85730; 87081; 93005; 93926; 94640; 96374; C1768; G0378; J0690; J1100; J1170; J1644; J1650; J1885; J2250; J2270; J2405; J2704; J2720; J3010; J3480; J7613; Q9967; J0330; J0360; J2060; J2370; J2765; J7120

== ENCOUNTER 2020-02-01 17:36 | Emergency (ER) | payer MEDICAID ==
[~2020-02-01] VITALS: Ht 177.8 cm; Wt 85.0 kg
[~2020-02-01 17:36] MED LIST changes: +APIX5TAB PO; +BACL-19 PO; -OXYC15TA PO; +OXYC15TA3 PO; +OXYC5TAB3 PO; -PANT40TA5 PO; +PANT40TA6 PO; +RIVA10TA2 PO
--- NOTE | 2020-02-01 18:11 | NUR ---
PT AGITATED IN RM, CALL LIGHT ANSWERED AND PT STATES "YA I NEED PAIN MEDICATIONS LIKE YESTERDAY" EXPLAINED TO PT THE ERMD WILL NEED TO SEE HIM AND EVALUATE PRIOR TO ORDERING PAIN MEDICATIONS.
--- NOTE | 2020-02-01 18:19 | NUR ---
PT CALLING AGAIN FOR PAIN MEDICATION, NOTE PLACED IN CHART FOR
[2020-02-01] MEDS ORDERED: SODIUM CHLORIDE FLUSH 10ML SYR IVF ONE (18:30)
[2020-02-01] MEDS ORDERED: PROMETHAZINE 25 MG/ML, 1ML IM ONE (18:30)
[2020-02-01] MEDS ORDERED: HYDROmorphone 1 MG/ML, 1ML INJ ONE ×2 (18:40→19:32)
[2020-02-01] MEDS ORDERED: PROMETHAZINE 25 MG/ML, 1ML ONE (18:40)
[2020-02-01] MEDS: HYDROmorphone 2 MG/ML, 1ML IVPush PRN ×2 (18:47→19:35)
--- NOTE | 2020-02-01 18:48 | NUR ---
PIV INITIATED, PT MEDICATED PER MAR.
--- NOTE | 2020-02-01 18:58 | NUR ---
PT RESTING ON GURNEY, PROVIDED PT WITH WARM BLANKET, MONITORS IN PLACE, SIDERAILS UP X2, CALL LIGHT WITHIN REACH. PT UNABLE TO PROVIDE URINE SAMPLE AT THIS TIME
[2020-02-01 18:59] LABS: BASOPHILS # (AUTO) 0.03 x10^3/uL (0-0.1); BASOPHILS % (AUTO) 1 % (0-1); EOSINOPHILS # (AUTO) 0.09 x10^3/uL (0-0.4); EOSINOPHILS % (AUTO) 1 % (1-7); LYMPHOCYTES # (AUTO) 1.98 x10^3/uL (1-3.4); LYMPHOCYTES % (AUTO) 30 % (22-44); MD NO; MEAN CORPUSCULAR HEMOGLOBIN 32.1 pg (27.5-34.5); MEAN CORPUSCULAR HGB CONC 33.3 g/dL (33.2-36.2); MEAN PLATELET VOLUME 6.9 fL (7.4-10.4); MONOCYTES # (AUTO) 0.53 x10^3/uL (0.2-0.8); MONOCYTES % (AUTO) 8 % (2-9); NEUTROPHILS % (AUTO) 60 % (42-75); PLATELET COUNT 313 x10^3/uL (130-400); RED BLOOD COUNT 5.25 x10^6/uL (4.38-5.82); RED CELL DISTRIBUTION WIDTH 14.6 % (9.4-14.8)
[2020-02-01 19:10] LABS: INTERNATIONAL NORMALIZED RATIO 0.93 (0.93-1.1); PROTHROMBIN TIME 9.8 Seconds (9.6-11.5)
[2020-02-01 19:11] LABS: ALANINE AMINOTRANSFERASE 19 U/L (12-78); ALBUMIN 3.7 g/dL (3.4-5.0); ANION GAP 8 mmol/L (5-15); CALCIUM 8.6 mg/dL (8.5-10.1); CHLORIDE 103 mmol/L (98-107); CREATININE 0.95 mg/dL (0.7-1.3)
[2020-02-01 19:13] LABS: ALKALINE PHOSPHATASE 125 U/L (45-117); BILIRUBIN,TOTAL 0.3 mg/dL (0.2-1.0); TOTAL PROTEIN 7.6 g/dL (6.4-8.2)
--- NOTE | 2020-02-01 19:31 | NUR ---
urine sample sent
[2020-02-01 19:36] VITALS: BP 160/99
--- NOTE | 2020-02-01 19:36 | NUR ---
PT MEDICATED PER MAR. PT TO CT
[2020-02-01 19:39] LABS: MICROSCOPIC NOT IND
[2020-02-01] MEDS ORDERED: OMNIPAQUE 350 MG/ML, 100ML BOTTLE ONE (19:50)
[2020-02-01] MEDS ORDERED: OXYcodone/APAP 5/325MG TABLET ONE (20:29)
[2020-02-01] MEDS ORDERED: OXYcodone/APAP 5/325MG TABLET PO ONE (20:30)
== END 2020-02-01 20:39 | disposition home or self-care (01) ==
LOC: ED 20:15
DX: R10.84 Generalized abdominal pain (principal); G89.29 Other chronic pain; K76.0 Fatty (change of) liver, not elsewhere classified; I10 Essential (primary) hypertension; J44.9 Chronic obstructive pulmonary disease, unspecified; I25.2 Old myocardial infarction; F17.200 Nicotine dependence, unspecified, uncomplicated; Z90.49 Acquired absence of other specified parts of digestive tract; Z86.79 Personal history of other diseases of the circulatory system
CPT/HCPCS: 36415; 74177; 80053; 81003; 83605; 83690; 85025; 85610; 85730; 87040; 96372; 96374; 96375; 99285; J1170; J2550; Q9967

== ENCOUNTER 2020-02-03 14:55 | Emergency (ER) | payer MEDICAID ==
[~2020-02-03] VITALS: Ht 180.3 cm; Wt 84.1 kg
[~2020-02-03 14:55] MED LIST changes: +PANT40TA5 PO; -PANT40TA6 PO
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
--- NOTE | 2020-02-03 15:40 | NUR ---
PATIENT SEEN HERE 2 DAYS AGO FOR SAME SYMPTOMS. IMAGING TAKEN THEN
[2020-02-03] MEDS ORDERED: ONDANSETRON ODT 4 MG ONE (15:48)
[2020-02-03] MEDS ORDERED: HYDROmorphone 1 MG/ML, 1ML INJ ONE (15:48)
[2020-02-03 15:56] VITALS: BP 134/98
--- NOTE | 2020-02-03 15:57 | NUR ---
PATIENT MEDICATED PER EMAR
[2020-02-03] MEDS ORDERED: HYDROmorphone 2 MG/ML, 1ML IM ONE (16:00)
[2020-02-03] MEDS ORDERED: ONDANSETRON ODT 4 MG PO ONE (16:00)
--- NOTE | 2020-02-03 16:16 | NUR ---
TO ROOM FOR EVAL
--- NOTE | 2020-02-03 16:30 | NUR ---
Patient/Caregiver given discharge instructions and they have confirmed that they understand the instructions. Patient wheeled self out to discharge with spouse.
== END 2020-02-03 16:35 | disposition home or self-care (01) ==
LOC: ED 16:10
DX: G89.29 Other chronic pain (principal); R10.84 Generalized abdominal pain; I10 Essential (primary) hypertension; I25.2 Old myocardial infarction; J44.9 Chronic obstructive pulmonary disease, unspecified; F17.200 Nicotine dependence, unspecified, uncomplicated; Z90.49 Acquired absence of other specified parts of digestive tract
CPT/HCPCS: 96372; 99283; J1170; Q0162

== ENCOUNTER 2020-04-12 14:43 | Emergency (ER) | payer MEDICAID ==
[~2020-04-12] VITALS: Ht 177.8 cm; Wt 87.0 kg
[2020-04-12 15:04] VITALS: BP 128/91
--- NOTE | 2020-04-12 15:04 | NUR ---
FIRST CONTACT WITH PT. PT C/O BILATERAL LEGS PAIN AND STATED "MY ABDOMINAL AREA IS REALLY HARD." PT DENIES N/V/D. LBM TODAY AND IT WAS NORMAL PER PT. PT'S AOX4. RESPS EVEN AND UNLABORED. BP/SPO2 MONITORS IN PLACE. CALL LIGHT WITHIN REACH. EDMD AT BEDSIDE EVALUATING AT THIS TIME.
--- NOTE | 2020-04-12 15:15 | NUR ---
PT LEFT AMA.
== END 2020-04-12 15:16 | disposition left against medical advice (07) ==
LOC: ED 14:59
DX: G89.29 Other chronic pain (principal); M79.661 Pain in right lower leg; M79.662 Pain in left lower leg; I10 Essential (primary) hypertension; I25.2 Old myocardial infarction; J44.9 Chronic obstructive pulmonary disease, unspecified; F17.200 Nicotine dependence, unspecified, uncomplicated; Z89.512 Acquired absence of left leg below knee; Z90.49 Acquired absence of other specified parts of digestive tract
CPT/HCPCS: 99281

== ENCOUNTER 2020-09-14 18:43 | Emergency (ER) | payer MEDICAID ==
[~2020-09-14] VITALS: Ht 177.8 cm; Wt 88.0 kg
[~2020-09-14 18:43] MED LIST changes: -OXYC5TAB3 PO; +OXYC5TAB98 PO; -PANT40TA5 PO; +PANT40TA6 PO
--- NOTE | 2020-09-14 19:00 | NUR ---
THIS IS A 65Y M THAT COMES IN FOR BILAT LEG PAIN. PT STS HE SEES VASCULAR AND HAS AN APPOINTMENT "IN [place] WITH A PAIN DOCTOR" PT IS A/O X4 CONNECTED TO MONITORING VSS, HTN NOTED PT HAS HX OF HTN BUT DOESN'T ELABORATE IF HE IS COMPLIANT WITH MEDICATION FOR THIS.
[2020-09-14] MEDS ORDERED: HYDROcodone/APAP 10/325 MG TABLET ONE (19:27)
[2020-09-14] MEDS ORDERED: HYDROcodone/APAP 10/325 MG TABLET PO ONE (19:30)
--- NOTE | 2020-09-14 19:31 | NUR ---
PT MEDICATED PER MAR
--- NOTE | 2020-09-14 19:39 | NUR ---
PT TO US AT THIS TIME
[2020-09-14 21:33] VITALS: BP 161/100
--- NOTE | 2020-09-14 21:34 | NUR ---
Patient/Caregiver given discharge instructions and they have confirmed that they understand the instructions. Patient wheeled to dc desk in personal chair.
== END 2020-09-14 21:35 | disposition home or self-care (01) ==
LOC: ED 20:31
DX: G89.29 Other chronic pain (principal); M79.662 Pain in left lower leg; M79.661 Pain in right lower leg; I10 Essential (primary) hypertension; J44.9 Chronic obstructive pulmonary disease, unspecified; I25.2 Old myocardial infarction; E87.1 Hypo-osmolality and hyponatremia; F17.200 Nicotine dependence, unspecified, uncomplicated; Z90.49 Acquired absence of other specified parts of digestive tract
CPT/HCPCS: 93970; 99284

== ENCOUNTER 2020-09-23 18:42 | Inpatient (IN) | payer MEDICAID ==
[~2020-09-23] VITALS: Ht 177.8 cm; Wt 83.7 kg
[~2020-09-23 18:42] MED LIST changes: -ASPI-650 PO; +ASPI325T20 PO
[2020-09-23] MEDS ORDERED: LIDOCAINE-MPF 1%, 5ML INFIL ONE (19:00)
[2020-09-23] MEDS ORDERED: SODIUM CHLORIDE FLUSH 10ML SYR IVF ONE (19:00)
[2020-09-23] MEDS ORDERED: ONDANSETRON 2MG/ML, 2ML IVPush ONE (19:00)
[2020-09-23] MEDS ORDERED: SODIUM CHLORIDE 0.9% 1,000ML IVBOLUS ONE (19:00)
[2020-09-23] MEDS ORDERED: MORPHINE SULFATE 4 MG/ML, 1ML ONE ×2 (19:17→20:53)
[2020-09-23] MEDS ORDERED: LIDOCAINE-MPF 1%, 5ML ONE (19:17)
[2020-09-23] MEDS ORDERED: ONDANSETRON 2MG/ML, 2ML ONE (19:17)
--- NOTE | 2020-09-23 19:19 | NUR ---
ERP AT BS. XR AT BS.
[2020-09-23] MEDS: MORPHINE SULFATE 4 MG/ML, 1ML IV PRN ×2 (19:44→20:55)
--- NOTE | 2020-09-23 19:59 | NUR ---
PT MEDICATED PER ORDERS. IV BOLUS INFUSING. LABS AND BLOOD CX DRAWN. PT VOIDED IN URINAL WITHOUT DIFFICULTY.
[2020-09-23 20:00] LABS: BASOPHILS % (AUTO) 1 % (0-1); EOSINOPHILS % (AUTO) 1 % (1-7); LYMPHOCYTES % (AUTO) 20 % (22-44); MEAN CORPUSCULAR HEMOGLOBIN 35.8 pg (27.5-34.5); MEAN CORPUSCULAR HGB CONC 34.8 g/dL (33.2-36.2); MEAN PLATELET VOLUME 6.7 fL (7.4-10.4); MONOCYTES % (AUTO) 8 % (2-9); NEUTROPHILS % (AUTO) 70 % (42-75); PLATELET COUNT 272 x10^3/uL (130-400); RED BLOOD COUNT 4.52 x10^6/uL (4.38-5.82); RED CELL DISTRIBUTION WIDTH 13.4 % (9.4-14.8)
[2020-09-23 20:07] LABS: ALANINE AMINOTRANSFERASE 19 U/L (12-78); ALBUMIN 3.7 g/dL (3.4-5.0); ANION GAP 5 mmol/L (5-15); CALCIUM 8.8 mg/dL (8.5-10.1); CHLORIDE 97 mmol/L (98-107)
[2020-09-23 20:10] LABS: ALKALINE PHOSPHATASE 121 U/L (45-117); BILIRUBIN,TOTAL 0.5 mg/dL (0.2-1.0); CREATININE 0.76 mg/dL (0.7-1.3); TOTAL PROTEIN 7.5 g/dL (6.4-8.2)
[2020-09-23] MEDS ORDERED: VANCOMYCIN PER PHARMACY MC PRN ×2 (20:30→23:00)
[2020-09-23] MEDS ORDERED: AMPICILLIN/SULBACTAM 3 GM in SODIUM CHLORIDE 0.9% 100 ML IV ONE (20:30)
[2020-09-23 20:33] LABS: MD SCAN
[2020-09-23] MEDS ORDERED: VANCOMYCIN 2,200 MG in SODIUM CHLORIDE 0.9% 500 ML IV ONE (21:00)
--- NOTE | 2020-09-23 21:02 | NUR ---
PT MEDICATED WITH ANOTHER DOSE OF MORPHINE FOR R HAND PAIN. ORTHO SURGEON WAS IN TO SEE PT. IV ABX INFUSING. RV'WD NPO STATUS WITH PT.
[2020-09-23] MEDS ORDERED: APIX5TAB PO (21:40)
--- NOTE | 2020-09-23 21:41 | NUR ---
ADMITTING MD WAS IN TO SEE PT. PLAN TO ADMIT PT FOR IV ABX. NO SURGERY AT THIS TIME. PT UNDERSTANDS POC.
[2020-09-23 22:17] VITALS: BP 157/98
[2020-09-23] MEDS: [UNRECOGNIZED DRUG - REMARK] MC SCH (23:00)
[2020-09-23] MEDS ORDERED: DOCUSATE 100 MG CAPSULE PO PRN (23:00)
[2020-09-23] MEDS ORDERED: IBUPROFEN 600 MG TABLET PO PRN (23:00)
[2020-09-23] MEDS ORDERED: ACETAMINOPHEN 325 MG TABLET PO PRN (23:00)
[2020-09-23] MEDS ORDERED: ENALAPRILAT 1.25 MG/ML, 2ML IVPush PRN (23:00)
[2020-09-23] MEDS ORDERED: MELATONIN 5 MG TABLET PO PRN (23:00)
[2020-09-23] MEDS: HYDROmorphone 2 MG/ML, 1ML IVPush PRN ×2 (23:20→23:36)
[2020-09-24] MEDS: HYDROmorphone 2 MG/ML, 1ML IVPush PRN ×2 (02:29→05:27)
[2020-09-24 02:32] VITALS: BP 119/79
[2020-09-24] MEDS ORDERED: AMPICILLIN/SULBACTAM 3 GM in SODIUM CHLORIDE 0.9% 100 ML IV SCH (05:00)
[2020-09-24 05:43] LABS: BASOPHILS % (AUTO) 1 % (0-1); EOSINOPHILS % (AUTO) 1 % (1-7); LYMPHOCYTES % (AUTO) 20 % (22-44); MEAN CORPUSCULAR HEMOGLOBIN 35.9 pg (27.5-34.5); MEAN CORPUSCULAR HGB CONC 34.8 g/dL (33.2-36.2); MEAN PLATELET VOLUME 6.8 fL (7.4-10.4); MONOCYTES % (AUTO) 5 % (2-9); NEUTROPHILS % (AUTO) 74 % (42-75); PLATELET COUNT 227 x10^3/uL (130-400); RED BLOOD COUNT 4.02 x10^6/uL (4.38-5.82); RED CELL DISTRIBUTION WIDTH 13.5 % (9.4-14.8)
[2020-09-24 05:53] LABS: ANION GAP 6 mmol/L (5-15); CALCIUM 8.1 mg/dL (8.5-10.1); CHLORIDE 105 mmol/L (98-107)
[2020-09-24 06:19] LABS: MD SCAN
[2020-09-24] MEDS: [UNRECOGNIZED DRUG - REMARK] MC SCH (07:17)
[2020-09-24 07:40] VITALS: BP 132/82
[2020-09-24] MEDS ORDERED: LISINOPRIL 10 MG TABLET PO SCH (09:00)
[2020-09-24] MEDS ORDERED: OXYcodone IR 5MG TABLET ONE (09:26)
[2020-09-24] MEDS: OXYcodone IR 5MG TABLET PO PRN ×2 (09:28→13:36)
[2020-09-24 13:31] VITALS: BP 113/76
[2020-09-24] MEDS ORDERED: DOXY100T PO (14:39)
[2020-09-24] MEDS ORDERED: AMOX1TAB64 PO (14:39)
[2020-09-24] MEDS ORDERED: VANCOMYCIN 1,600 MG in SODIUM CHLORIDE 0.9% 250 ML IV SCH (15:00)
[2020-09-24] MEDS ORDERED: APIXABAN 5 MG TABLET PO SCH (17:00)
== END 2020-09-24 14:15 | disposition left against medical advice (07) | DRG 383 ==
LOC: ED 20:40 → 4NE 22:14 → ED 22:45 → 4NE 22:45
PROVIDERS: ADMIT Family Medicine; ATTEND Internal Medicine
DX: L03.011 Cellulitis of right finger (principal); M65.141 Other infective (teno)synovitis, right hand; D68.59 Other primary thrombophilia; D75.89 Other specified diseases of blood and blood-forming organs; E16.2 Hypoglycemia, unspecified; E87.1 Hypo-osmolality and hyponatremia; F11.20 Opioid dependence, uncomplicated; F41.9 Anxiety disorder, unspecified; I10 Essential (primary) hypertension; G89.29 Other chronic pain; I73.9 Peripheral vascular disease, unspecified; M79.89 Other specified soft tissue disorders; F17.213 Nicotine dependence, cigarettes, with withdrawal; I25.10 Atherosclerotic heart disease of native coronary artery without angina pectoris; I25.2 Old myocardial infarction; Z79.01 Long term (current) use of anticoagulants; Z80.9 Family history of malignant neoplasm, unspecified; Z82.49 Family history of ischemic heart disease and other diseases of the circulatory system; Z86.718 Personal history of other venous thrombosis and embolism; Z89.512 Acquired absence of left leg below knee; Z91.19 Patient's noncompliance with other medical treatment and regimen; Z90.49 Acquired absence of other specified parts of digestive tract
CPT/HCPCS: 36415; 80048; 80053; 82607; 83605; 84443; 85025; 87040; 96361; 96374; 96376; 99285; G0378; J0295; J1170; J2405; J3370; J2270; J7030; J7040

== ENCOUNTER 2020-09-25 13:41 | Inpatient (IN) | payer MEDICAID ==
[~2020-09-25] VITALS: Ht 177.8 cm; Wt 90.0 kg
[~2020-09-25 13:41] MED LIST changes: +AMOX1TAB64 PO; +DOXY100T PO
--- NOTE | 2020-09-25 14:28 | NUR ---
PT C/O RIGHT POINTER FINGER PAIN THAT STARTED 3-4 DAYS AGO. PT STATED THE FINGER STARTED HURTING AND THEN CONTINUED TO SWELL. PT STATES NO INJURIES OR BUG BITE THAT HE IS AWARE OF. PT WAS ADMITTED TO [facility] 2 DAYS AGO BUT HAD TO LEAVE TO PAY HIS RENT. PAIN 05/26.
[2020-09-25] MEDS ORDERED: SODIUM CHLORIDE 0.9% 1,000ML IVBOLUS ONE (14:30)
[2020-09-25] MEDS ORDERED: CLINDAMYCIN PMX 900MG/50ML 50 ML IVPB ONE (14:30)
[2020-09-25] MEDS ORDERED: SODIUM CHLORIDE FLUSH 10ML SYR IVF ONE (14:30)
[2020-09-25] MEDS ORDERED: HYDROmorphone 1 MG/ML, 1ML INJ ONE (15:24)
[2020-09-25] MEDS ORDERED: HYDROmorphone 1 MG/ML, 1ML INJ IV ONE (15:30)
[2020-09-25] MEDS ORDERED: CLINDAMYCIN PMX 900MG/50ML 50 ML ONE (15:34)
[2020-09-25 15:45] LABS: BASOPHILS % (AUTO) 0 % (0-1); EOSINOPHILS % (AUTO) 1 % (1-7); LYMPHOCYTES % (AUTO) 16 % (22-44); MEAN CORPUSCULAR HEMOGLOBIN 35.8 pg (27.5-34.5); MEAN CORPUSCULAR HGB CONC 34.6 g/dL (33.2-36.2); MEAN PLATELET VOLUME 6.8 fL (7.4-10.4); MONOCYTES % (AUTO) 6 % (2-9); NEUTROPHILS % (AUTO) 76 % (42-75); PLATELET COUNT 259 x10^3/uL (130-400); RED BLOOD COUNT 4.29 x10^6/uL (4.38-5.82); RED CELL DISTRIBUTION WIDTH 13.3 % (9.4-14.8)
[2020-09-25 15:47] LABS: MD NO
[2020-09-25 15:50] LABS: HCT (SEDRATE) 43.7 % (39.2-51.8)
[2020-09-25 15:58] LABS: ALANINE AMINOTRANSFERASE 34 U/L (12-78); ALBUMIN 3.4 g/dL (3.4-5.0); ANION GAP 7 mmol/L (5-15); CALCIUM 8.9 mg/dL (8.5-10.1); CHLORIDE 99 mmol/L (98-107); CREATININE 0.68 mg/dL (0.7-1.3)
[2020-09-25] MEDS ORDERED: SODIUM CHLORIDE FLUSH 10ML SYR IVF PRN (16:00)
[2020-09-25 16:04] LABS: ALKALINE PHOSPHATASE 137 U/L (45-117); BILIRUBIN,TOTAL 0.4 mg/dL (0.2-1.0); TOTAL PROTEIN 7.5 g/dL (6.4-8.2)
--- NOTE | 2020-09-25 16:04 | NUR ---
REPORT TO MARY JO BUTLER
[2020-09-25] MEDS ORDERED: BUPIVACAINE/PF 0.25% ONE (16:17)
[2020-09-25] MEDS ORDERED: VANCOMYCIN PER PHARMACY MC PRN (16:30)
[2020-09-25] MEDS ORDERED: FENTANYL PF 250 MCG/5ML ONE (17:21)
[2020-09-25] MEDS ORDERED: MIDAZOLAM 1 MG/ML, 2ML ONE (17:21)
[2020-09-25] MEDS ORDERED: SUCCINYLCHOLINE 20 MG/ML, 10ML ONE (17:23)
[2020-09-25] MEDS ORDERED: PROPOFOL 10 MG/ML, 20ML ONE (17:23)
[2020-09-25] MEDS ORDERED: METOCLOPRAMIDE 5 MG/ML, 2ML IVPush PRN (17:30)
[2020-09-25] MEDS ORDERED: ACETAMINOPHEN 325 MG TABLET PO PRN (17:30)
[2020-09-25] MEDS ORDERED: hydrALAzine 20 MG/ML, 1ML IV PRN (17:30)
[2020-09-25] MEDS ORDERED: OXYcodone 5 MG/5 ML ORAL.SOL UDC PO PRN (17:30)
[2020-09-25] MEDS ORDERED: PROMETHAZINE 25 MG/ML, 1ML IVPush PRN (17:30)
[2020-09-25] MEDS ORDERED: LABETALOL 5MG/ML, 20ML IV PRN (17:30)
[2020-09-25] MEDS ORDERED: ONDANSETRON 2MG/ML, 2ML ONE (17:40)
[2020-09-25] MEDS ORDERED: POLYETHYLENE GLYCOL 17 GM PACKET PO PRN (18:00)
[2020-09-25] MEDS ORDERED: IBUPROFEN 600 MG TABLET PO PRN (18:00)
[2020-09-25] MEDS ORDERED: BISACODYL 10 MG SUPP PR PRN (18:00)
[2020-09-25] MEDS ORDERED: FENTANYL PF 100 MCG/2ML ONE (18:12)
[2020-09-25] MEDS ORDERED: OXYcodone 5 MG/5 ML ORAL.SOL UDC ONE (18:13)
[2020-09-25] MEDS ORDERED: HYDROmorphone 2 MG/ML, 1ML ONE (18:13)
[2020-09-25] MEDS: FENTANYL PF 100 MCG/2ML IV PRN ×2 (18:14→18:35)
[2020-09-25] MEDS ORDERED: MEPERIDINE/PF 25MG/ML,1ML ONE (18:15)
[2020-09-25] MEDS ORDERED: MEPERIDINE/PF 25MG/0.5ML IVPush PRN (18:30)
[2020-09-25] MEDS: HYDROmorphone 1 MG/ML, 1ML INJ IVPush PRN ×4 (18:35→18:53)
[2020-09-25] MEDS ORDERED: LABETALOL 5MG/ML, 20ML ONE (18:44)
[2020-09-25] MEDS ORDERED: LORazepam 2 MG/ML, 1ML ONE (18:55)
[2020-09-25] MEDS: LORazepam 2 MG/ML, 1ML IVPush PRN ×2 (18:57→19:08)
[2020-09-25] MEDS: PIPERACILLIN/TAZO/PMX 3.375GM 50 ML IV SCH ×2 (19:45→23:52)
[2020-09-25] MEDS: MELATONIN 5 MG TABLET PO PRN (22:39)
[2020-09-25] MEDS: NICOTINE 14MG/24 HR PATCH.TD24 TD SCH (22:40)
[2020-09-25 23:29] VITALS: BP 105/73
[2020-09-25] MEDS: HYDROcodone/APAP 10/325 MG TABLET PO PRN (23:55)
[2020-09-26 03:54] VITALS: BP 100/59
[2020-09-26 06:14] VITALS: BP 119/78
[2020-09-26] MEDS: PIPERACILLIN/TAZO/PMX 3.375GM 50 ML IV SCH ×3 (06:19→18:12)
[2020-09-26] MEDS: HYDROcodone/APAP 10/325 MG TABLET PO PRN ×3 (06:19→18:30)
[2020-09-26] MEDS ORDERED: ALBUTEROL HFA 90 MCG/SPRAY INH PRN (07:30)
[2020-09-26 07:56] LABS: BASOPHILS % (AUTO) 1 % (0-1); EOSINOPHILS % (AUTO) 2 % (1-7); LYMPHOCYTES % (AUTO) 27 % (22-44); MEAN CORPUSCULAR HEMOGLOBIN 35.4 pg (27.5-34.5); MEAN CORPUSCULAR HGB CONC 34.1 g/dL (33.2-36.2); MEAN PLATELET VOLUME 6.7 fL (7.4-10.4); MONOCYTES % (AUTO) 7 % (2-9); NEUTROPHILS % (AUTO) 63 % (42-75); PLATELET COUNT 220 x10^3/uL (130-400); RED BLOOD COUNT 3.62 x10^6/uL (4.38-5.82); RED CELL DISTRIBUTION WIDTH 13.1 % (9.4-14.8)
[2020-09-26 07:57] LABS: ANION GAP 6 mmol/L (5-15); CALCIUM 8.4 mg/dL (8.5-10.1); CHLORIDE 102 mmol/L (98-107); CREATININE 0.73 mg/dL (0.7-1.3)
[2020-09-26 08:09] LABS: MD NO
[2020-09-26] MEDS: SENNA/DOCUSATE TABLET PO SCH (08:18)
[2020-09-26] MEDS ORDERED: POLYETHYLENE GLYCOL 17 GM PACKET PO ONE (09:00)
[2020-09-26] MEDS: FLUTICASONE FUROATE 100MCG/INH INH SCH (09:01)
[2020-09-26] MEDS: MORPHINE SULFATE 4 MG/ML, 1ML IVPush PRN ×2 (09:38→17:43)
[2020-09-26] MEDS ORDERED: VANCOMYCIN 2,300 MG in SODIUM CHLORIDE 0.9% 500 ML IV ONE (12:00)
[2020-09-26 12:55] VITALS: BP 123/72
[2020-09-26] MEDS: NICOTINE 14MG/24 HR PATCH.TD24 TD SCH (16:01)
[2020-09-26 19:22] VITALS: BP 145/89
[2020-09-26] MEDS ORDERED: DAPTOMYCIN 370 MG in SODIUM CHLORIDE 0.9% 100 ML IV SCH (20:30)
[2020-09-26] MEDS: OXYcodone/APAP 5/325MG TABLET PO PRN (21:53)
[2020-09-27] MEDS ORDERED: VANCOMYCIN 1,800 MG in SODIUM CHLORIDE 0.9% 250 ML IV SCH
[2020-09-27] MEDS: PIPERACILLIN/TAZO/PMX 3.375GM 50 ML IV SCH ×4 (00:35→17:36)
[2020-09-27 00:41] VITALS: BP 154/85
[2020-09-27] MEDS: OXYcodone/APAP 5/325MG TABLET PO PRN ×6 (02:12→22:54)
[2020-09-27 07:04] VITALS: BP 142/80
[2020-09-27] MEDS: FLUTICASONE FUROATE 100MCG/INH INH SCH (09:00)
[2020-09-27] MEDS: SENNA/DOCUSATE TABLET PO SCH (09:26)
[2020-09-27 13:12] VITALS: BP 152/88
[2020-09-27] MEDS: MORPHINE SULFATE 4 MG/ML, 1ML IVPush PRN ×2 (13:59→22:33)
[2020-09-27] MEDS: NICOTINE 14MG/24 HR PATCH.TD24 TD SCH (17:36)
[2020-09-27 19:07] VITALS: BP 152/83
[2020-09-27] MEDS: DAPTOMYCIN 400 MG in SODIUM CHLORIDE 0.9% 100 ML IV SCH (21:13)
[2020-09-28] MEDS: PIPERACILLIN/TAZO/PMX 3.375GM 50 ML IV SCH ×4 (00:07→18:11)
[2020-09-28 02:25] VITALS: BP 165/84
[2020-09-28] MEDS: OXYcodone/APAP 5/325MG TABLET PO PRN ×5 (02:55→20:23)
[2020-09-28 05:37] LABS: ANION GAP 6 mmol/L (5-15); BASOPHILS % (AUTO) 2 % (0-1); CALCIUM 8.7 mg/dL (8.5-10.1); CHLORIDE 107 mmol/L (98-107); CREATININE 0.69 mg/dL (0.7-1.3); EOSINOPHILS % (AUTO) 2 % (1-7); LYMPHOCYTES % (AUTO) 35 % (22-44); MEAN CORPUSCULAR HEMOGLOBIN 35.4 pg (27.5-34.5); MEAN CORPUSCULAR HGB CONC 34.3 g/dL (33.2-36.2); MEAN PLATELET VOLUME 6.5 fL (7.4-10.4); MONOCYTES % (AUTO) 7 % (2-9); NEUTROPHILS % (AUTO) 54 % (42-75); PLATELET COUNT 303 x10^3/uL (130-400); RED BLOOD COUNT 4.05 x10^6/uL (4.38-5.82); RED CELL DISTRIBUTION WIDTH 13.1 % (9.4-14.8)
[2020-09-28 05:41] LABS: MD NO
[2020-09-28] MEDS: MORPHINE SULFATE 4 MG/ML, 1ML IVPush PRN ×5 (06:27→22:16)
[2020-09-28] MEDS: FLUTICASONE FUROATE 100MCG/INH INH SCH (07:34)
[2020-09-28 08:00] VITALS: BP 173/91
[2020-09-28] MEDS: SENNA/DOCUSATE TABLET PO SCH (08:04)
[2020-09-28] MEDS: morphine SULFATE 10 MG/ML, 1ML IVPush ONE ×2 (09:13→10:00)
[2020-09-28 12:24] VITALS: BP 170/98
[2020-09-28] MEDS: NICOTINE 14MG/24 HR PATCH.TD24 TD SCH (16:22)
[2020-09-28 19:11] VITALS: BP 162/92
[2020-09-28] MEDS: DAPTOMYCIN 400 MG in SODIUM CHLORIDE 0.9% 100 ML IV SCH (20:23)
[2020-09-29] MEDS: OXYcodone/APAP 5/325MG TABLET PO PRN ×6 (00:16→23:59)
[2020-09-29] MEDS: PIPERACILLIN/TAZO/PMX 3.375GM 50 ML IV SCH ×3 (00:16→12:03)
[2020-09-29 02:03] VITALS: BP 160/83
[2020-09-29] MEDS: MORPHINE SULFATE 4 MG/ML, 1ML IVPush PRN ×2 (06:29→09:10)
[2020-09-29] MEDS ORDERED: FENTANYL PF 100 MCG/2ML ONE (07:17)
[2020-09-29] MEDS ORDERED: ONDANSETRON 2MG/ML, 2ML IVPush PRN (08:00)
[2020-09-29] MEDS ORDERED: PROMETHAZINE 25 MG/ML, 1ML IVPush PRN (08:00)
[2020-09-29] MEDS ORDERED: OXYcodone 5 MG/5 ML ORAL.SOL UDC PO PRN (08:00)
[2020-09-29] MEDS ORDERED: PROMETHAZINE 25 MG SUPP PR PRN (08:00)
[2020-09-29] MEDS ORDERED: ACETAMINOPHEN 325 MG TABLET PO PRN (08:00)
[2020-09-29] MEDS ORDERED: FENTANYL PF 100 MCG/2ML IV PRN (08:00)
[2020-09-29] MEDS ORDERED: METHOCARBAMOL 1,000 MG in DEXTROSE 5% 100 ML IV PRN (08:00)
[2020-09-29] MEDS ORDERED: OXYcodone 5 MG/5 ML ORAL.SOL UDC ONE (08:21)
[2020-09-29] MEDS ORDERED: HYDROmorphone 1 MG/ML, 1ML INJ ONE (08:21)
[2020-09-29] MEDS: HYDROmorphone 1 MG/ML, 1ML INJ IVPush PRN ×2 (08:25→08:45)
[2020-09-29 09:00] VITALS: BP 206/100
[2020-09-29] MEDS ORDERED: LABETALOL 5MG/ML, 20ML IVPush PRN (09:00)
[2020-09-29] MEDS: SENNA/DOCUSATE TABLET PO SCH (09:10)
[2020-09-29] MEDS: LISINOPRIL 10 MG TABLET PO SCH (09:11)
[2020-09-29] MEDS: FLUTICASONE FUROATE 100MCG/INH INH SCH (09:20)
[2020-09-29] MEDS ORDERED: hydrALAzine 20 MG/ML, 1ML IV PRN (09:30)
[2020-09-29 10:50] VITALS: BP 156/79
[2020-09-29 12:30] VITALS: BP 172/74
[2020-09-29] MEDS: HYDROmorphone 2 MG/ML, 1ML IVPush PRN ×2 (13:16→21:04)
[2020-09-29] MEDS ORDERED: PROPOFOL 10 MG/ML, 20ML ONE (15:52)
[2020-09-29 19:27] VITALS: BP 151/83
[2020-09-29] MEDS: NICOTINE 14MG/24 HR PATCH.TD24 TD SCH (20:05)
[2020-09-29] MEDS: DAPTOMYCIN 400 MG in SODIUM CHLORIDE 0.9% 100 ML IV SCH (20:20)
[2020-09-30 00:03] VITALS: BP 158/85
[2020-09-30] MEDS: OXYcodone/APAP 5/325MG TABLET PO PRN ×5 (03:48→20:46)
[2020-09-30 03:51] VITALS: BP 158/88
[2020-09-30 05:20] LABS: BASOPHILS % (AUTO) 1 % (0-1); EOSINOPHILS % (AUTO) 2 % (1-7); LYMPHOCYTES % (AUTO) 25 % (22-44); MEAN CORPUSCULAR HEMOGLOBIN 35.7 pg (27.5-34.5); MEAN CORPUSCULAR HGB CONC 34.6 g/dL (33.2-36.2); MEAN PLATELET VOLUME 6.4 fL (7.4-10.4); MONOCYTES % (AUTO) 8 % (2-9); NEUTROPHILS % (AUTO) 65 % (42-75); PLATELET COUNT 343 x10^3/uL (130-400); RED BLOOD COUNT 4.28 x10^6/uL (4.38-5.82); RED CELL DISTRIBUTION WIDTH 13.3 % (9.4-14.8)
[2020-09-30 05:26] LABS: ANION GAP 8 mmol/L (5-15); CALCIUM 8.5 mg/dL (8.5-10.1); CHLORIDE 106 mmol/L (98-107); CREATININE 0.69 mg/dL (0.7-1.3)
[2020-09-30 05:30] LABS: MD NO
[2020-09-30] MEDS: HYDROmorphone 2 MG/ML, 1ML IVPush PRN ×5 (05:58→22:11)
[2020-09-30 06:45] VITALS: BP 174/80
[2020-09-30 07:21] VITALS: BP 154/91
[2020-09-30] MEDS: LISINOPRIL 10 MG TABLET PO SCH (08:49)
[2020-09-30] MEDS: SENNA/DOCUSATE TABLET PO SCH (08:49)
[2020-09-30] MEDS: FLUTICASONE FUROATE 100MCG/INH INH SCH (08:49)
[2020-09-30] MEDS ORDERED: HYDROmorphone 1 MG/ML, 1ML INJ IV ONE (11:00)
[2020-09-30 13:10] VITALS: BP 156/84
[2020-09-30 18:27] VITALS: BP 186/72
[2020-09-30] MEDS: NICOTINE 14MG/24 HR PATCH.TD24 TD SCH (20:23)
[2020-09-30] MEDS: MELATONIN 5 MG TABLET PO PRN (20:24)
[2020-09-30] MEDS: DAPTOMYCIN 400 MG in SODIUM CHLORIDE 0.9% 100 ML IV SCH (20:24)
[2020-10-01] MEDS: OXYcodone/APAP 5/325MG TABLET PO PRN ×4 (00:48→13:21)
[2020-10-01 01:50] VITALS: BP 161/75
[2020-10-01] MEDS: HYDROmorphone 2 MG/ML, 1ML IVPush PRN ×3 (02:32→12:09)
[2020-10-01 05:22] LABS: HCT (SEDRATE) 42.3 % (39.2-51.8)
[2020-10-01 05:30] LABS: BASOPHILS % (AUTO) 1 % (0-1); EOSINOPHILS % (AUTO) 2 % (1-7); LYMPHOCYTES % (AUTO) 33 % (22-44); MEAN CORPUSCULAR HEMOGLOBIN 35.2 pg (27.5-34.5); MEAN CORPUSCULAR HGB CONC 34.1 g/dL (33.2-36.2); MEAN PLATELET VOLUME 6.6 fL (7.4-10.4); MONOCYTES % (AUTO) 7 % (2-9); NEUTROPHILS % (AUTO) 57 % (42-75); PLATELET COUNT 350 x10^3/uL (130-400); RED BLOOD COUNT 4.12 x10^6/uL (4.38-5.82); RED CELL DISTRIBUTION WIDTH 13.3 % (9.4-14.8)
[2020-10-01 05:37] LABS: CHLORIDE 104 mmol/L (98-107)
[2020-10-01 05:40] LABS: MD NO
[2020-10-01 05:57] LABS: ALANINE AMINOTRANSFERASE 25 U/L (12-78); ALBUMIN 2.9 g/dL (3.4-5.0); ALKALINE PHOSPHATASE 132 U/L (45-117); ANION GAP 9 mmol/L (5-15); BILIRUBIN,TOTAL 0.2 mg/dL (0.2-1.0); CALCIUM 8.7 mg/dL (8.5-10.1); CREATINE KINASE, TOTAL 31 U/L (39-308); CREATININE 0.65 mg/dL (0.7-1.3); TOTAL PROTEIN 6.8 g/dL (6.4-8.2)
[2020-10-01 07:04] VITALS: BP 162/75
[2020-10-01] MEDS: FLUTICASONE FUROATE 100MCG/INH INH SCH (07:28)
[2020-10-01] MEDS: SENNA/DOCUSATE TABLET PO SCH (07:29)
[2020-10-01] MEDS ORDERED: LISINOPRIL 20 MG TABLET PO SCH (09:00)
[2020-10-01] MEDS ORDERED: SILVER SULF. CRM 1%, 400GM TP SCH (11:30)
[2020-10-01 13:17] VITALS: BP 144/80
[2020-10-01] MEDS ORDERED: LISI-170 PO (14:13)
[2020-10-01] MEDS ORDERED: OXYC1TAB14 PO (14:13)
[2020-10-01] MEDS ORDERED: IBUP-1222 PO (14:13)
[2020-10-01] MEDS ORDERED: SILV25CR30 TP (14:13)
[2020-10-01] MEDS ORDERED: LINE600T15 PO (14:13)
[2020-10-01] MEDS ORDERED: LINEZOLID 600 MG TABLET PO SCH (21:00)
== END 2020-10-01 15:39 | disposition home or self-care (01) | DRG 364 ==
LOC: ED 14:00 → EDIP 16:04 → 4NE 19:38
PROVIDERS: ADMIT Internal Medicine; ATTEND Internal Medicine
PROC: 0PDT0ZZ Extraction of Right Finger Phalanx, Open Approach (ICD-10-PCS; principal; 2020-09-25 19:30)
PROC: 0JBJ0ZZ Excision of Right Hand Subcutaneous Tissue and Fascia, Open Approach (ICD-10-PCS; 2020-09-29)
DX: L03.011 Cellulitis of right finger (principal); D75.89 Other specified diseases of blood and blood-forming organs; E87.1 Hypo-osmolality and hyponatremia; G40.909 Epilepsy, unspecified, not intractable, without status epilepticus; I10 Essential (primary) hypertension; I25.10 Atherosclerotic heart disease of native coronary artery without angina pectoris; I73.9 Peripheral vascular disease, unspecified; J44.9 Chronic obstructive pulmonary disease, unspecified; L03.113 Cellulitis of right upper limb; Z20.822 Contact with and (suspected) exposure to COVID-19; M65.9 Synovitis and tenosynovitis, unspecified; F17.213 Nicotine dependence, cigarettes, with withdrawal; M10.9 Gout, unspecified; Z86.718 Personal history of other venous thrombosis and embolism; Z87.01 Personal history of pneumonia (recurrent); I25.2 Old myocardial infarction; Z89.512 Acquired absence of left leg below knee; Z90.49 Acquired absence of other specified parts of digestive tract; Z80.8 Family history of malignant neoplasm of other organs or systems; Z82.49 Family history of ischemic heart disease and other diseases of the circulatory system
CPT/HCPCS: 36415; 80048; 80053; 82550; 82784; 82787; 83605; 84550; 85025; 85651; 86140; 87015; 87040; 87070; 87075; 87077; 87102; 87116; 87147; 87186; 87205; 87206; 87635; 94640; 96374; 96375; 99285; G0378; J0878; J1170; J2175; J2250; J2405; J2543; J2704; J3010; J3370; J0330; J0360; J2060; J2270; J7040

== ENCOUNTER 2020-10-03 15:41 | Emergency (ER) | payer MEDICAID ==
[~2020-10-03] VITALS: Ht 177.8 cm; Wt 88.5 kg
[~2020-10-03 15:41] MED LIST changes: +IBUP-1222 PO; +LINE600T15 PO; +OXYC1TAB14 PO; +SILV25CR30 TP
--- NOTE | 2020-10-03 16:17 | NUR ---
RN at bedside. Pt has left below the knee amputation d/t peripheral artery disease, denies any other medical history. Reports smokes 10 cigarrettes per day. Pt presents with sutures, redness, pain, swelling on right hand. Reports he was unable to get his antibiotic prescription filled because when he went to pick it up, twice, the pharmacy said it was never called in.
[2020-10-03] MEDS ORDERED: OXYcodone/APAP 5/325MG TABLET PO ONE (16:30)
[2020-10-03] MEDS ORDERED: VANCOMYCIN PER PHARMACY MC ONE (16:30)
[2020-10-03 16:40] LABS: BASOPHILS % (AUTO) 1 % (0-1); EOSINOPHILS % (AUTO) 1 % (1-7); LYMPHOCYTES % (AUTO) 30 % (22-44); MEAN CORPUSCULAR HEMOGLOBIN 35.3 pg (27.5-34.5); MEAN CORPUSCULAR HGB CONC 34.7 g/dL (33.2-36.2); MEAN PLATELET VOLUME 6.4 fL (7.4-10.4); MONOCYTES % (AUTO) 9 % (2-9); NEUTROPHILS % (AUTO) 59 % (42-75); PLATELET COUNT 415 x10^3/uL (130-400); RED BLOOD COUNT 4.72 x10^6/uL (4.38-5.82); RED CELL DISTRIBUTION WIDTH 13.3 % (9.4-14.8)
[2020-10-03 16:47] LABS: MD NO
[2020-10-03 16:48] LABS: ALBUMIN 3.7 g/dL (3.4-5.0); ANION GAP 9 mmol/L (5-15); CHLORIDE 100 mmol/L (98-107); CREATININE 0.72 mg/dL (0.7-1.3)
--- NOTE | 2020-10-03 16:49 | NUR ---
Vacnomycin requested from pharmacy.
[2020-10-03] MEDS ORDERED: VANCOMYCIN 2,200 MG in SODIUM CHLORIDE 0.9% 500 ML IV ONE (17:00)
--- NOTE | 2020-10-03 17:00 | NUR ---
This RN attempted IV insert, unsuccessful. Pt reports they usually have to use US.
[2020-10-03] MEDS ORDERED: OXYcodone/APAP 5/325MG TABLET ONE (17:08)
--- NOTE | 2020-10-03 17:29 | NUR ---
MARY JO Vidal, at bedside starting US IV.
--- NOTE | 2020-10-03 17:55 | NUR ---
Provider confirmed that blood cultures do not need drawn today.
--- NOTE | 2020-10-03 17:56 | NUR ---
IV inserted via US by MARY JO Vidal. Vancomycin infusing.
--- NOTE | 2020-10-03 19:10 | NUR ---
RN at bedside, vancomycin still infusing. Pt denies needs at this time.
--- NOTE | 2020-10-03 19:49 | NUR ---
Pt sitting up in bed watching TV. Vancomycin infusing.
[2020-10-03 20:08] VITALS: BP 165/94
--- NOTE | 2020-10-03 20:11 | NUR ---
Vancomycin complete. IV removed, catheter intact, hemostasis achieved, dressing applied.
== END 2020-10-03 20:21 | disposition home or self-care (01) ==
LOC: ED 19:15
DX: L03.113 Cellulitis of right upper limb (principal); I10 Essential (primary) hypertension; M79.89 Other specified soft tissue disorders; E87.1 Hypo-osmolality and hyponatremia; F17.210 Nicotine dependence, cigarettes, uncomplicated; Z91.14 Patient's other noncompliance with medication regimen
CPT/HCPCS: 36415; 73130; 80048; 82040; 85025; 96365; 96366; 99284; J3370; J7040

== ENCOUNTER 2020-10-13 19:36 | Emergency (ER) | payer MEDICAID ==
[~2020-10-13] VITALS: Ht 177.8 cm; Wt 85.0 kg
[2020-10-13] MEDS ORDERED: OXYcodone/APAP 5/325MG TABLET PO ONE (20:00)
[2020-10-13] MEDS ORDERED: ONDANSETRON ODT 4 MG PO ONE (20:00)
[2020-10-13] MEDS ORDERED: ONDANSETRON ODT 4 MG ONE (21:06)
[2020-10-13] MEDS ORDERED: OXYcodone/APAP 5/325MG TABLET ONE (21:06)
--- NOTE | 2020-10-13 21:20 | NUR ---
CC OF PAIN IN RIGHT HAND ON INDEX FINGER AFTER SURGERY A WEEK AGO. FINGER IS SWOLLEN, RED AND BLACK DISCOLORATION NOTED. PT APPEARS TO BE VERY DIRTY AND UNKEPT. PT STATES "IT FEELS LIKE MY BONES ARE BEING SMASHED"
[2020-10-13 22:17] LABS: HCT (SEDRATE) 47.1 % (39.2-51.8)
[2020-10-13 22:18] LABS: BASOPHILS % (AUTO) 1 % (0-1); EOSINOPHILS % (AUTO) 1 % (1-7); LYMPHOCYTES % (AUTO) 33 % (22-44); MEAN CORPUSCULAR HEMOGLOBIN 35.1 pg (27.5-34.5); MEAN CORPUSCULAR HGB CONC 35.1 g/dL (33.2-36.2); MEAN PLATELET VOLUME 6.9 fL (7.4-10.4); MONOCYTES % (AUTO) 7 % (2-9); NEUTROPHILS % (AUTO) 57 % (42-75); PLATELET COUNT 271 x10^3/uL (130-400); RED BLOOD COUNT 4.73 x10^6/uL (4.38-5.82); RED CELL DISTRIBUTION WIDTH 13.5 % (9.4-14.8)
[2020-10-13 22:27] LABS: ANION GAP 7 mmol/L (5-15); CALCIUM 9.5 mg/dL (8.5-10.1); CHLORIDE 100 mmol/L (98-107); CREATININE 0.78 mg/dL (0.7-1.3)
[2020-10-13 22:28] LABS: MD NO
--- NOTE | 2020-10-13 22:30 | NUR ---
PT REQUESTING PAIN MEDS, ERP AWARE
[2020-10-13 22:33] LABS: C-REACTIVE PROTEIN, QUANT 0.97 mg/dL (0.02-0.49)
[2020-10-13] MEDS ORDERED: HYDROmorphone 1 MG/ML, 1ML INJ ONE (22:40)
[2020-10-13] MEDS ORDERED: HYDROmorphone 1 MG/ML, 1ML INJ IM ONE (23:00)
--- NOTE | 2020-10-13 23:28 | NUR ---
PT RESTING IN RFREE [place]IL. RESP EVEN AND UNLABORED
[2020-10-14] VITALS: BP 121/83
[2020-10-15] MEDS ORDERED: OXYC1TAB14 PO (15:34)
[2020-10-15] MEDS ORDERED: APIX5TAB PO (15:34)
== END 2020-10-14 00:26 | disposition home or self-care (01) ==
LOC: ED 20:56
DX: M25.541 Pain in joints of right hand (principal); Z72.9 Problem related to lifestyle, unspecified; F17.210 Nicotine dependence, cigarettes, uncomplicated; J44.9 Chronic obstructive pulmonary disease, unspecified; I11.9 Hypertensive heart disease without heart failure; I25.2 Old myocardial infarction; Z90.49 Acquired absence of other specified parts of digestive tract
CPT/HCPCS: 36415; 73140; 80048; 85025; 85651; 86140; 96372; 99285; 99406; J1170; Q0162

== ENCOUNTER 2020-10-14 19:37 | Inpatient (IN) | payer MEDICAID ==
[~2020-10-14] VITALS: Ht 177.8 cm; Wt 83.7 kg
--- NOTE | 2020-10-14 19:59 | NUR ---
THIS IS A 65M THAT COMES IN FOR CP/ RIOS AND SOME VISION LOSS IN L EYE. PT STS HE NO LONGER HAS VISION LOSS. PRIOR TO THIS EVENT, PT REPORTS TAKING 2EXCEDRINE. PT WAS SEEN YESTERDAY FOR HAND INFECTION AND STS HE HAS BEEN COMPLIANT SINCE DC YESTSERDAY. PT CONNECTED TO ALL MONITORING
--- NOTE | 2020-10-14 20:12 | NUR ---
PT REFUSED IV START AT THIS TIME, PROVIDER UPDATED.
[2020-10-14 20:31] LABS: BASOPHILS % (AUTO) 1 % (0-1); EOSINOPHILS % (AUTO) 1 % (1-7); LYMPHOCYTES % (AUTO) 38 % (22-44); MD NO; MEAN CORPUSCULAR HEMOGLOBIN 34.8 pg (27.5-34.5); MEAN CORPUSCULAR HGB CONC 34.8 g/dL (33.2-36.2); MONOCYTES % (AUTO) 8 % (2-9); NEUTROPHILS % (AUTO) 52 % (42-75); PLATELET COUNT 262 x10^3/uL (130-400); RED BLOOD COUNT 4.66 x10^6/uL (4.38-5.82); RED CELL DISTRIBUTION WIDTH 13.4 % (9.4-14.8)
[2020-10-14 20:38] LABS: ALANINE AMINOTRANSFERASE 80 U/L (12-78); ALBUMIN 3.6 g/dL (3.4-5.0); ANION GAP 11 mmol/L (5-15); CALCIUM 8.7 mg/dL (8.5-10.1); CHLORIDE 97 mmol/L (98-107); CREATININE 0.81 mg/dL (0.7-1.3)
[2020-10-14 20:43] LABS: ALKALINE PHOSPHATASE 161 U/L (45-117); BILIRUBIN,TOTAL 0.4 mg/dL (0.2-1.0); TOTAL PROTEIN 7.4 g/dL (6.4-8.2); TROPONIN I < 0.015 ng/mL (0.000-0.045)
[2020-10-14] MEDS ORDERED: SODIUM CHLORIDE FLUSH 10ML SYR IVF ONE (21:00)
[2020-10-14] MEDS ORDERED: OMNIPAQUE 350 MG/ML, 100ML BOTTLE ONE (21:00)
[2020-10-14 21:18] LABS: INTERNATIONAL NORMALIZED RATIO 1.02 (0.93-1.1); PROTHROMBIN TIME 10.9 Seconds (9.6-11.5)
[2020-10-14] MEDS ORDERED: L.E.T SOLUTION TP ONE ×2 (21:30)
--- NOTE | 2020-10-14 21:34 | NUR ---
RN AT BEDSIDE FOR US IV PLACEMENT, LET ALSO WITH US FOR COMFORT.
--- NOTE | 2020-10-14 21:45 | NUR ---
PIV STARTED AT THIS TIME PT TOLERATED REQ PAIN MEDS ERP UPDATED, NO NEW ORDERS
--- NOTE | 2020-10-14 21:51 | NUR ---
CT CALLED FOR CTA AT THIS TIME STS WILL BE HERE SHORTLY
--- NOTE | 2020-10-14 21:55 | NUR ---
PT TO IMAGING AT THIS TIME
--- NOTE | 2020-10-14 22:06 | NUR ---
PT NOW BACK FROM CT, AWAITING CT READ FOR DISPO
[2020-10-14] MEDS ORDERED: MORPHINE SULFATE 4 MG/ML, 1ML ONE (22:58)
[2020-10-14] MEDS ORDERED: MORPHINE SULFATE 4 MG/ML, 1ML IVPush PRN (23:00)
--- NOTE | 2020-10-14 23:02 | NUR ---
PT MEDICATED PER MAR FOR PAIN IN HAND AND LEGS, DENIES OTHER NEEDS TOLERATED INTERVENTION WELL.
[2020-10-14] MEDS ORDERED: MELATONIN 5 MG TABLET PO PRN (23:30)
[2020-10-14] MEDS ORDERED: ACETAMINOPHEN 325 MG TABLET PO PRN (23:30)
[2020-10-14] MEDS ORDERED: DOCUSATE 100 MG CAPSULE PO PRN (23:30)
[2020-10-14] MEDS ORDERED: LIDODERM 5% PATCH TD PRN (23:30)
[2020-10-14] MEDS ORDERED: NITROGLYCERIN 0.4 MG BOTTLE (25 TABS) SL PRN (23:30)
--- NOTE | 2020-10-14 23:39 | NUR ---
TP RN: SHAW Gil, HOSPITALIST WANTS PT ON [employer]TE[employer].
--- NOTE | 2020-10-14 23:54 | NUR ---
REPORT TO LIDIA CAMARGO PT READY FOR TRANSFER TO ROOM 493
--- NOTE | 2020-10-15 00:20 | NUR ---
PT TRANSPORTED TO ROOM WITH ALL BELONGINGS.
[2020-10-15 01:08] VITALS: BP 133/91
[2020-10-15] MEDS: HYDROcodone/APAP 10/325 MG TABLET PO PRN ×4 (01:32→14:29)
[2020-10-15 02:59] LABS: BASOPHILS % (AUTO) 1 % (0-1); EOSINOPHILS % (AUTO) 2 % (1-7); LYMPHOCYTES % (AUTO) 35 % (22-44); MEAN CORPUSCULAR HEMOGLOBIN 34.8 pg (27.5-34.5); MEAN CORPUSCULAR HGB CONC 34.6 g/dL (33.2-36.2); MONOCYTES % (AUTO) 7 % (2-9); NEUTROPHILS % (AUTO) 56 % (42-75); PLATELET COUNT 244 x10^3/uL (130-400); RED CELL DISTRIBUTION WIDTH 13.1 % (9.4-14.8)
[2020-10-15 03:03] LABS: MD NO
[2020-10-15 03:07] LABS: ANION GAP 9 mmol/L (5-15); CALCIUM 8.6 mg/dL (8.5-10.1); CHLORIDE 101 mmol/L (98-107); CREATININE 0.66 mg/dL (0.7-1.3)
[2020-10-15 03:19] LABS: TROPONIN I < 0.015 ng/mL (0.000-0.045)
[2020-10-15] MEDS ORDERED: MORPHINE SULFATE 4 MG/ML, 1ML IVPush PRN (03:30)
[2020-10-15 07:07] VITALS: BP 135/85
[2020-10-15] MEDS ORDERED: LORazepam 2 MG/ML, 1ML IVPush ONE (08:00)
[2020-10-15] MEDS ORDERED: GADOTERATE 10 MMOL/20ML SYR ONE (08:23)
[2020-10-15] MEDS ORDERED: APIXABAN 5 MG TABLET PO SCH ×2 (09:00→21:00)
[2020-10-15] MEDS ORDERED: SILVER SULF. CRM 1%, 400GM TP SCH (09:00)
[2020-10-15] MEDS ORDERED: LISINOPRIL 20 MG TABLET PO SCH (09:00)
[2020-10-15 09:09] LABS: TROPONIN I < 0.015 ng/mL (0.000-0.045)
[2020-10-15] MEDS ORDERED: REGADENOSON 0.4 MG/5 ML SYRINGE ONE (11:40)
[2020-10-15 12:18] VITALS: BP 103/69
[2020-10-15] MEDS ORDERED: OXYC1TAB14 PO (15:34)
[2020-10-15] MEDS ORDERED: APIX5TAB PO (15:34)
== END 2020-10-15 16:02 | disposition home or self-care (01) | DRG 82 ==
LOC: ED 20:59 → EDIP 23:33 → 4EST 10-15 00:24
PROVIDERS: ADMIT Family Medicine; ATTEND Internal Medicine
DX: H54.62 Unqualified visual loss, left eye, normal vision right eye (principal); G89.29 Other chronic pain; I11.9 Hypertensive heart disease without heart failure; I25.2 Old myocardial infarction; R07.89 Other chest pain; I25.10 Atherosclerotic heart disease of native coronary artery without angina pectoris; I73.9 Peripheral vascular disease, unspecified; F17.210 Nicotine dependence, cigarettes, uncomplicated; F32.9 Major depressive disorder, single episode, unspecified; F41.9 Anxiety disorder, unspecified; Z80.0 Family history of malignant neoplasm of digestive organs; Z82.49 Family history of ischemic heart disease and other diseases of the circulatory system; Z86.718 Personal history of other venous thrombosis and embolism; Z89.512 Acquired absence of left leg below knee; Z95.1 Presence of aortocoronary bypass graft; Z95.5 Presence of coronary angioplasty implant and graft; G54.6 Phantom limb syndrome with pain; Z88.8 Allergy status to other drugs, medicaments and biological substances; Z86.14 Personal history of Methicillin resistant Staphylococcus aureus infection; Z90.49 Acquired absence of other specified parts of digestive tract
CPT/HCPCS: 36415; 70450; 70496; 70498; 70553; 71045; 78452; 80048; 80053; 84484; 85025; 85610; 85651; 85730; 86140; 93005; 93017; 93306; 96372; 99285; 99406; J1170; J2785; Q0162; Q9967; A9502; A9575; J2060; J2270

== ENCOUNTER 2020-11-09 12:43 | Inpatient (IN) | payer MEDICAID ==
[~2020-11-09] VITALS: Ht 177.8 cm; Wt 86.0 kg
--- NOTE | 2020-11-09 13:11 | NUR ---
PT CAME IN CO PAIN, REDNESS, AND SWELLING TO RIGHT INDEX FINGER. "I WAS RECENTLY HOSPITALIZED A MONTH AGO FOR MRSA IN THIS FINGER AND I HAD TO GET SURGERY TO CLEAN IT OUT. FRANKIE HAD THESE STICHES IN FOR A MONTH AND IM NOT SURE IF THEY NEED TO COME OUT OR NOT" PT RESTING IN [facility]. AWAITING ORDERS AT THIS TIME
[2020-11-09 13:57] LABS: BASOPHILS % (AUTO) 1 % (0-1); EOSINOPHILS % (AUTO) 1 % (1-7); LYMPHOCYTES % (AUTO) 26 % (22-44); MEAN CORPUSCULAR HEMOGLOBIN 34.3 pg (27.5-34.5); MEAN CORPUSCULAR HGB CONC 34.3 g/dL (33.2-36.2); MEAN PLATELET VOLUME 6.8 fL (7.4-10.4); MONOCYTES % (AUTO) 9 % (2-9); NEUTROPHILS % (AUTO) 63 % (42-75); PLATELET COUNT 265 x10^3/uL (130-400); RED BLOOD COUNT 5.04 x10^6/uL (4.38-5.82); RED CELL DISTRIBUTION WIDTH 14.2 % (9.4-14.8)
[2020-11-09] MEDS ORDERED: CLINDAMYCIN PMX 300MG/50ML 50 ML IV ONE (14:00)
[2020-11-09] MEDS ORDERED: SODIUM CHLORIDE FLUSH 10ML SYR IVF ONE (14:00)
[2020-11-09 14:04] LABS: MD NO
[2020-11-09 14:09] LABS: ALBUMIN 3.8 g/dL (3.4-5.0); ANION GAP 5 mmol/L (5-15); CHLORIDE 104 mmol/L (98-107); CREATININE 0.66 mg/dL (0.7-1.3)
[2020-11-09 14:11] LABS: HEMOGRAM NOTE RECHECKED
--- NOTE | 2020-11-09 14:55 | NUR ---
REPORT TO VICENTA CAMARGO
--- NOTE | 2020-11-09 15:06 | NUR ---
REPORT FROM ELIZABETH CAMARGO
[2020-11-09] MEDS ORDERED: IBUPROFEN 200 MG TABLET ONE (15:26)
[2020-11-09] MEDS ORDERED: SODIUM CHLORIDE FLUSH 10ML SYR IVF PRN (15:30)
[2020-11-09] MEDS ORDERED: IBUPROFEN 200 MG TABLET PO ONE (15:30)
[2020-11-09] MEDS ORDERED: SODIUM CHLORIDE 0.9% IVPB SCH (16:00)
[2020-11-09] MEDS ORDERED: DOCUSATE 100 MG CAPSULE PO PRN (16:00)
[2020-11-09] MEDS ORDERED: MELATONIN 5 MG TABLET PO PRN (16:00)
[2020-11-09] MEDS ORDERED: DAPTOMYCIN IVPB SCH (16:00)
[2020-11-09] MEDS ORDERED: ACETAMINOPHEN 325 MG TABLET PO PRN (16:00)
[2020-11-09] MEDS ORDERED: hydrALAzine 20 MG/ML, 1ML IVPush PRN (16:00)
--- NOTE | 2020-11-09 16:09 | NUR ---
REPORT GIVEN TO YANET CAMARGO
[2020-11-09] MEDS ORDERED: HEPARIN 5,000 UNITS/ML, 1ML IV ONE (16:30)
[2020-11-09] MEDS ORDERED: NICOTINE 7 MG/24 HR PATCH.TD24 TD SCH (16:30)
[2020-11-09] MEDS: HYDROmorphone 1 MG/ML, 1ML INJ IVPush PRN ×3 (16:52→23:12)
[2020-11-09 17:22] LABS: HCT (SEDRATE) 50.3 % (39.2-51.8)
[2020-11-09 17:25] LABS: PROTHROMBIN TIME 10.7 Seconds (9.6-11.5)
[2020-11-09] MEDS ORDERED: LORazepam 2 MG/ML, 1ML IVPush ONE (17:30)
[2020-11-09] MEDS: OXYcodone IR 5MG TABLET PO PRN ×2 (17:37→21:57)
[2020-11-09 17:41] LABS: C-REACTIVE PROTEIN, QUANT 0.87 mg/dL (0.02-0.49)
[2020-11-09] MEDS: DAPTOMYCIN 550 MG in SODIUM CHLORIDE 0.9% 100 ML IVPB SCH (18:28)
[2020-11-09 18:32] VITALS: BP 134/88
[2020-11-09 20:09] VITALS: BP 142/86
[2020-11-09] MEDS: SODIUM CHLORIDE FLUSH 10ML SYR IVF SCH (20:16)
[2020-11-09] MEDS ORDERED: [UNRECOGNIZED DRUG - REMARK] MC SCH (21:00)
[2020-11-09] MEDS ORDERED: GABAPENTIN 300 MG CAPSULE PO SCH (21:00)
[2020-11-09] MEDS ORDERED: HYDR-3237 PO (22:33)
[2020-11-10 00:29] VITALS: BP 123/83
[2020-11-10] MEDS: HEPARIN 25,000 UNITS/250ML PMX 250 ML IV PRN (01:44)
[2020-11-10] MEDS: OXYcodone IR 5MG TABLET PO PRN ×5 (01:56→22:02)
[2020-11-10] MEDS: HYDROmorphone 1 MG/ML, 1ML INJ IVPush PRN ×6 (03:06→20:49)
[2020-11-10 06:20] VITALS: BP 113/72
[2020-11-10] MEDS: PANTOPRAZOLE 40MG TABLET PO SCH (06:29)
[2020-11-10 08:11] LABS: BASOPHILS % (AUTO) 1 % (0-1); EOSINOPHILS % (AUTO) 1 % (1-7); LYMPHOCYTES % (AUTO) 31 % (22-44); MEAN CORPUSCULAR HEMOGLOBIN 34.6 pg (27.5-34.5); MEAN CORPUSCULAR HGB CONC 34.3 g/dL (33.2-36.2); MEAN PLATELET VOLUME 6.9 fL (7.4-10.4); MONOCYTES % (AUTO) 6 % (2-9); NEUTROPHILS % (AUTO) 61 % (42-75); PLATELET COUNT 227 x10^3/uL (130-400); RED BLOOD COUNT 4.57 x10^6/uL (4.38-5.82); RED CELL DISTRIBUTION WIDTH 13.7 % (9.4-14.8)
[2020-11-10 08:12] LABS: MD NO
[2020-11-10] MEDS: LISINOPRIL 20 MG TABLET PO SCH (08:20)
[2020-11-10 08:25] LABS: ALBUMIN 3.4 g/dL (3.4-5.0); ANION GAP 6 mmol/L (5-15); CALCIUM 8.8 mg/dL (8.5-10.1); CHLORIDE 103 mmol/L (98-107)
[2020-11-10 08:30] LABS: ALANINE AMINOTRANSFERASE 26 U/L (12-78); ALKALINE PHOSPHATASE 102 U/L (45-117); BILIRUBIN,TOTAL 0.4 mg/dL (0.2-1.0); CREATININE 0.62 mg/dL (0.7-1.3); TOTAL PROTEIN 6.6 g/dL (6.4-8.2)
[2020-11-10] MEDS: NICOTINE 14MG/24 HR PATCH.TD24 TD SCH (09:33)
[2020-11-10] MEDS: SODIUM CHLORIDE FLUSH 10ML SYR IVF SCH ×2 (09:34→20:49)
[2020-11-10 13:31] VITALS: BP 125/78
[2020-11-10] MEDS: DAPTOMYCIN 550 MG in SODIUM CHLORIDE 0.9% 100 ML IVPB SCH (15:46)
[2020-11-10] MEDS: HEPARIN 5,000 UNITS/ML, 1ML IV PRN (16:25)
[2020-11-10] MEDS ORDERED: LORazepam 2 MG/ML, 1ML ONE (16:30)
[2020-11-10] MEDS ORDERED: GADOTERATE 10 MMOL/20ML SYR ONE (17:00)
[2020-11-10 19:40] VITALS: BP 118/81
[2020-11-11 00:09] VITALS: BP 100/70
[2020-11-11] MEDS: HYDROmorphone 1 MG/ML, 1ML INJ IVPush PRN ×4 (00:13→11:57)
[2020-11-11 04:12] VITALS: BP 103/73
[2020-11-11] MEDS: HEPARIN 25,000 UNITS/250ML PMX 250 ML IV PRN (05:29)
[2020-11-11] MEDS: OXYcodone IR 5MG TABLET PO PRN ×2 (05:35→10:25)
[2020-11-11 05:43] VITALS: BP 109/73
[2020-11-11] MEDS: HEPARIN 5,000 UNITS/ML, 1ML IV PRN (06:42)
[2020-11-11 07:32] VITALS: BP 124/81
[2020-11-11] MEDS: LISINOPRIL 20 MG TABLET PO SCH (07:49)
[2020-11-11] MEDS: PANTOPRAZOLE 40MG TABLET PO SCH (07:49)
[2020-11-11] MEDS: SODIUM CHLORIDE FLUSH 10ML SYR IVF SCH (07:50)
[2020-11-11] MEDS ORDERED: APIX5TAB PO (10:20)
[2020-11-11] MEDS ORDERED: PANT40TA6 PO (10:20)
[2020-11-11] MEDS ORDERED: LINE600T15 PO (10:20)
[2020-11-11] MEDS: NICOTINE 14MG/24 HR PATCH.TD24 TD SCH (10:25)
== END 2020-11-11 13:21 | disposition home or self-care (01) | DRG 383 ==
LOC: ED 13:15 → EDIP 15:28 → 3N 16:19
PROVIDERS: ADMIT Family Medicine; ATTEND Hospitalist
DX: L03.011 Cellulitis of right finger (principal); E87.1 Hypo-osmolality and hyponatremia; F17.210 Nicotine dependence, cigarettes, uncomplicated; G62.9 Polyneuropathy, unspecified; G89.4 Chronic pain syndrome; I11.0 Hypertensive heart disease with heart failure; I25.10 Atherosclerotic heart disease of native coronary artery without angina pectoris; I50.32 Chronic diastolic (congestive) heart failure; I73.9 Peripheral vascular disease, unspecified; J44.9 Chronic obstructive pulmonary disease, unspecified; K22.70 Barrett's esophagus without dysplasia; K43.9 Ventral hernia without obstruction or gangrene; M54.12 Radiculopathy, cervical region; S61.208A Unspecified open wound of other finger without damage to nail, initial encounter; Z80.0 Family history of malignant neoplasm of digestive organs; Z82.49 Family history of ischemic heart disease and other diseases of the circulatory system; I25.2 Old myocardial infarction; Z86.14 Personal history of Methicillin resistant Staphylococcus aureus infection; Z88.8 Allergy status to other drugs, medicaments and biological substances; Z89.512 Acquired absence of left leg below knee; Z90.49 Acquired absence of other specified parts of digestive tract; Z71.6 Tobacco abuse counseling; Z79.899 Other long term (current) drug therapy; Z79.891 Long term (current) use of opiate analgesic; Z79.01 Long term (current) use of anticoagulants
CPT/HCPCS: 36415; 71045; 80048; 80053; 82040; 82550; 83735; 84100; 84439; 84443; 85025; 85520; 85610; 85651; 86140; 87040; 96365; 96375; G0378; J0878; J1170; J1644; A9575; J2060

== ENCOUNTER 2020-11-13 06:35 | Emergency (ER) | payer MEDICAID ==
[~2020-11-13] VITALS: Ht 177.8 cm; Wt 86.0 kg
[~2020-11-13 06:35] MED LIST changes: +HYDR-3237 PO
--- NOTE | 2020-11-13 06:55 | NUR ---
Pt states "my legs hurt like hell, they feel like they're burning, and my chest started hurting" pt states it started hurting yesterday. pt states chest pain feels like its burning is not radiating. attached to all monitors, vss, SR on monitor. pt postioned to comfort, wheelchair at bedside. Medical student at bedside for evaluation. awaiting orders.
[2020-11-13 08:01] LABS: BASOPHILS % (AUTO) 1 % (0-1); EOSINOPHILS % (AUTO) 1 % (1-7); LYMPHOCYTES % (AUTO) 26 % (22-44); MEAN CORPUSCULAR HEMOGLOBIN 34.8 pg (27.5-34.5); MEAN CORPUSCULAR HGB CONC 34.8 g/dL (33.2-36.2); MEAN PLATELET VOLUME 6.6 fL (7.4-10.4); MONOCYTES % (AUTO) 10 % (2-9); NEUTROPHILS % (AUTO) 63 % (42-75); PLATELET COUNT 240 x10^3/uL (130-400); RED BLOOD COUNT 4.56 x10^6/uL (4.38-5.82); RED CELL DISTRIBUTION WIDTH 13.7 % (9.4-14.8)
[2020-11-13 08:11] LABS: ANION GAP 7 mmol/L (5-15); CALCIUM 9.1 mg/dL (8.5-10.1); CHLORIDE 98 mmol/L (98-107); CREATININE 0.64 mg/dL (0.7-1.3)
[2020-11-13 08:15] LABS: TROPONIN I < 0.015 ng/mL (0.000-0.045)
[2020-11-13 08:24] LABS: MD SCAN
[2020-11-13 08:51] VITALS: BP 149/73
== END 2020-11-13 08:53 | disposition home or self-care (01) ==
LOC: ED 07:39 → SUATTDRO 07:41 → ED 08:53
PROVIDERS: ATTEND Internal Medicine
DX: R00.2 Palpitations (principal); I25.2 Old myocardial infarction; I10 Essential (primary) hypertension; J44.9 Chronic obstructive pulmonary disease, unspecified; F17.200 Nicotine dependence, unspecified, uncomplicated
CPT/HCPCS: 36415; 80048; 83735; 84484; 85025; 93005; 99284

== ENCOUNTER 2020-12-13 15:46 | Emergency (ER) | payer MEDICAID ==
[~2020-12-13] VITALS: Ht 175.3 cm; Wt 82.3 kg
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
[2020-12-13 16:57] LABS: BASOPHILS % (AUTO) 1 % (0-1); EOSINOPHILS % (AUTO) 1 % (1-7); LYMPHOCYTES % (AUTO) 30 % (22-44); MEAN CORPUSCULAR HEMOGLOBIN 35.1 pg (27.5-34.5); MEAN CORPUSCULAR HGB CONC 35.1 g/dL (33.2-36.2); MEAN PLATELET VOLUME 6.7 fL (7.4-10.4); MONOCYTES % (AUTO) 8 % (2-9); NEUTROPHILS % (AUTO) 60 % (42-75); PLATELET COUNT 304 x10^3/uL (130-400); RED BLOOD COUNT 4.92 x10^6/uL (4.38-5.82); RED CELL DISTRIBUTION WIDTH 14.5 % (9.4-14.8)
[2020-12-13 17:00] LABS: MD NO
[2020-12-13 17:04] LABS: ALBUMIN 3.9 g/dL (3.4-5.0); ANION GAP 8 mmol/L (5-15); CALCIUM 9.1 mg/dL (8.5-10.1); CHLORIDE 106 mmol/L (98-107); CREATININE 0.69 mg/dL (0.7-1.3)
[2020-12-13] MEDS ORDERED: KETOROLAC 30 MG/1 ML IM ONE (17:30)
[2020-12-13] MEDS ORDERED: KETOROLAC 60 MG/2 ML ONE (17:40)
[2020-12-13 17:43] VITALS: BP 127/93
--- NOTE | 2020-12-13 17:46 | NUR ---
Patient given discharge instructions and prescription and they have confirmed that they understand the instructions. Patient stable and wheeled from ED in power wheelchair to private vehicle.
== END 2020-12-13 17:47 | disposition home or self-care (01) ==
LOC: ED 17:46
DX: M79.662 Pain in left lower leg (principal); J44.9 Chronic obstructive pulmonary disease, unspecified; I25.2 Old myocardial infarction; I10 Essential (primary) hypertension; E87.1 Hypo-osmolality and hyponatremia; F17.200 Nicotine dependence, unspecified, uncomplicated; Z88.8 Allergy status to other drugs, medicaments and biological substances; Z90.49 Acquired absence of other specified parts of digestive tract
CPT/HCPCS: 36415; 73564; 80048; 82040; 85025; 96372; 99284; J1885

== ENCOUNTER 2021-01-02 16:37 | Emergency (ER) | payer MEDICAID ==
[~2021-01-02] VITALS: Ht 177.8 cm; Wt 84.0 kg
--- NOTE | 2021-01-02 18:06 | NUR ---
PT TO RM FROM LOBBY
--- NOTE | 2021-01-02 18:21 | NUR ---
PT C/O OF BURNING PAIN IN RIGHT FOOT BILAT HANDS. STATES HE FEELS PINS AND NEEDLES WITHOUT RELEIF OF GABAPENTIN. CMS NOTED IN HANDS AND RT FOOT. ATTACHED TO CARD/SP02/BP MONITORS. VSS. BED IN LOW POSITION. PT IN NAD. WII CONITIUE TO MONITOR.
[2021-01-02] MEDS ORDERED: OXYcodone/APAP 5/325MG TABLET PO ONE (19:30)
[2021-01-02] MEDS ORDERED: OXYcodone/APAP 5/325MG TABLET ONE (19:39)
[2021-01-02 19:43] VITALS: BP 166/91
--- NOTE | 2021-01-02 20:02 | NUR ---
Patient given discharge instructions and they have confirmed that they understand the instructions. Patient uses personal motorized wheel chair for dc. nad, denies additional questions or needs, no personal belongings left in room after dc
== END 2021-01-02 20:04 | disposition home or self-care (01) ==
LOC: ED 17:11
DX: G62.9 Polyneuropathy, unspecified (principal); F17.200 Nicotine dependence, unspecified, uncomplicated; R94.31 Abnormal electrocardiogram [ECG] [EKG]; J44.9 Chronic obstructive pulmonary disease, unspecified; I10 Essential (primary) hypertension; I25.2 Old myocardial infarction; Z90.49 Acquired absence of other specified parts of digestive tract; Z89.512 Acquired absence of left leg below knee
CPT/HCPCS: 93005; 99283

== ENCOUNTER 2021-02-03 19:40 | Emergency (ER) | payer MEDICAID ==
[~2021-02-03] VITALS: Ht 177.8 cm; Wt 84.0 kg
[2021-02-03] MEDS ORDERED: SODIUM CHLORIDE FLUSH 10ML SYR IVF ONE (20:30)
[2021-02-03 20:47] LABS: BASOPHILS % (AUTO) 1 % (0-1); EOSINOPHILS % (AUTO) 2 % (1-7); LYMPHOCYTES % (AUTO) 42 % (22-44); MEAN CORPUSCULAR HEMOGLOBIN 34.4 pg (27.5-34.5); MEAN CORPUSCULAR HGB CONC 34.7 g/dL (33.2-36.2); MEAN PLATELET VOLUME 6.8 fL (7.4-10.4); MONOCYTES % (AUTO) 7 % (2-9); NEUTROPHILS % (AUTO) 48 % (42-75); PLATELET COUNT 280 x10^3/uL (130-400)
[2021-02-03] MEDS ORDERED: MORPHINE SULFATE 4 MG/ML, 1ML ONE ×2 (20:51→22:08)
[2021-02-03 20:55] LABS: ALANINE AMINOTRANSFERASE 26 U/L (12-78); ALBUMIN 3.4 g/dL (3.4-5.0); ANION GAP 9 mmol/L (5-15); CALCIUM 8.4 mg/dL (8.5-10.1); CHLORIDE 106 mmol/L (98-107); CREATININE 0.61 mg/dL (0.7-1.3)
[2021-02-03 20:56] LABS: PROTHROMBIN TIME 10.7 Seconds (9.6-11.5)
[2021-02-03 20:58] LABS: ALKALINE PHOSPHATASE 107 U/L (45-117); BILIRUBIN,TOTAL 0.2 mg/dL (0.2-1.0); TOTAL PROTEIN 7.1 g/dL (6.4-8.2)
[2021-02-03] MEDS: MORPHINE SULFATE 4 MG/ML, 1ML IVPush PRN ×2 (20:59→22:01)
[2021-02-03] MEDS ORDERED: OMNIPAQUE 350 MG/ML, 150 ML BOTTLE ONE (21:30)
--- NOTE | 2021-02-03 22:02 | NUR ---
pt medicated for a pain a second time per pt req
[2021-02-03 23:21] VITALS: BP 131/77
--- NOTE | 2021-02-03 23:22 | NUR ---
PT REQUESTING MORE PAIN MEDS
== END 2021-02-03 23:47 | disposition home or self-care (01) ==
LOC: ED 20:40
DX: S39.011A Strain of muscle, fascia and tendon of abdomen, initial encounter (principal); M79.661 Pain in right lower leg; J44.9 Chronic obstructive pulmonary disease, unspecified; I10 Essential (primary) hypertension; X58.XXXA Exposure to other specified factors, initial encounter; Y93.89 Activity, other specified; Y92.89 Other specified places as the place of occurrence of the external cause; Y99.8 Other external cause status
CPT/HCPCS: 36415; 75635; 80053; 85025; 85610; 85730; 93971; 96374; 96376; 99285; J2270; Q9967

== ENCOUNTER 2021-02-27 19:36 | Emergency (ER) | payer MEDICAID ==
[~2021-02-27] VITALS: Ht 177.8 cm; Wt 84.0 kg
[2021-02-27 20:30] LABS: BASOPHILS % (AUTO) 1 % (0-1); EOSINOPHILS % (AUTO) 1 % (1-7); LYMPHOCYTES % (AUTO) 27 % (22-44); MEAN CORPUSCULAR HEMOGLOBIN 34.4 pg (27.5-34.5); MEAN CORPUSCULAR HGB CONC 34.7 g/dL (33.2-36.2); MEAN PLATELET VOLUME 6.7 fL (7.4-10.4); MONOCYTES % (AUTO) 7 % (2-9); NEUTROPHILS % (AUTO) 64 % (42-75); PLATELET COUNT 312 x10^3/uL (130-400); RED BLOOD COUNT 5.05 x10^6/uL (4.38-5.82); RED CELL DISTRIBUTION WIDTH 14.3 % (9.4-14.8)
[2021-02-27 20:33] LABS: ALBUMIN 3.5 g/dL (3.4-5.0); ANION GAP 7 mmol/L (5-15); CALCIUM 9.3 mg/dL (8.5-10.1); CHLORIDE 102 mmol/L (98-107)
[2021-02-27 20:37] LABS: ALANINE AMINOTRANSFERASE 26 U/L (12-78); ALKALINE PHOSPHATASE 110 U/L (45-117); BILIRUBIN,TOTAL 0.3 mg/dL (0.2-1.0); CREATININE 0.59 mg/dL (0.7-1.3); TOTAL PROTEIN 7.5 g/dL (6.4-8.2)
[2021-02-27 22:03] LABS: MICROSCOPIC NOT IND
--- NOTE | 2021-02-27 22:41 | NUR ---
PT. TO ROOM FROM LOBBY AT THIS TIME.
[2021-02-27] MEDS ORDERED: SODIUM CHLORIDE FLUSH 10ML SYR IVF ONE (23:00)
--- NOTE | 2021-02-27 23:17 | NUR ---
ATTEMPTED IV ACCESS X 3 WITH NO SUCCESS. DESTINEY RN IN TO PLACE IV NOW.
[2021-02-27] MEDS ORDERED: OMNIPAQUE 350 MG/ML, 100ML BOTTLE ONE (23:50)
[2021-02-27] MEDS ORDERED: KETOROLAC 30 MG/1 ML ONE (23:55)
[2021-02-28] MEDS ORDERED: KETOROLAC 30 MG/1 ML IVPush ONE
--- NOTE | 2021-02-28 00:08 | NUR ---
PT. TO CT VIA [facility] AFTER PAIN MEDS.
--- NOTE | 2021-02-28 01:04 | NUR ---
BEDSIDE REPORT FROM ELLYN CAMARGO, PT CARE TRANSFERRED AT THIS TIME. PT CONTINUES TO REST ON GURNEY, LAYING SUPINE, EVEN AND UNLABORED RESPIRATIONS NOTED. VSS. PT NAD. RAILS ENGAGED, BED IN LOWEST, CALL LIGHT ON LAP, WCTM. WAITING FOR CT READ
[2021-02-28 02:00] VITALS: BP 112/75
--- NOTE | 2021-02-28 02:01 | NUR ---
Daphnie given discharge instructions and they have confirmed that they understand the instructions. Patient USING PERSONAL MOTORIZED WHEELCHAIR FOR DC. NAD, all questions answered appropriately, denies additional needs at this time. No personal belongings left in room after discharge. PROVIDED COFFEE FOR COMFORT PER REQUEST.
== END 2021-02-28 02:06 | disposition home or self-care (01) ==
LOC: ED 22:00
DX: R10.84 Generalized abdominal pain (principal); I11.9 Hypertensive heart disease without heart failure; G89.29 Other chronic pain; I25.2 Old myocardial infarction; F17.200 Nicotine dependence, unspecified, uncomplicated; Z88.8 Allergy status to other drugs, medicaments and biological substances; Z88.9 Allergy status to unspecified drugs, medicaments and biological substances; J44.9 Chronic obstructive pulmonary disease, unspecified; Z90.49 Acquired absence of other specified parts of digestive tract
CPT/HCPCS: 36415; 74177; 80053; 81003; 85025; 96374; 99285; J1885; Q9967

== ENCOUNTER 2021-04-08 20:36 | Emergency (ER) | payer MEDICAID ==
[~2021-04-08] VITALS: Ht 177.8 cm; Wt 85.0 kg
[2021-04-08 20:45] VITALS: BP 161/94
[2021-04-08] MEDS ORDERED: OXYcodone/APAP 10/325MG TABLET ONE (22:26)
[2021-04-08] MEDS ORDERED: OXYcodone/APAP 10/325MG TABLET PO ONE (22:30)
== END 2021-04-08 22:45 | disposition home or self-care (01) ==
LOC: ED 22:37
DX: M79.662 Pain in left lower leg (principal); G89.29 Other chronic pain; F17.210 Nicotine dependence, cigarettes, uncomplicated; I10 Essential (primary) hypertension; J44.9 Chronic obstructive pulmonary disease, unspecified; I25.2 Old myocardial infarction; Z90.49 Acquired absence of other specified parts of digestive tract
CPT/HCPCS: 99283; 99406

== ENCOUNTER 2021-04-21 19:38 | Emergency (ER) | payer MEDICAID ==
[~2021-04-21] VITALS: Ht 177.8 cm; Wt 85.0 kg
[~2021-04-21 19:38] MED LIST changes: +OXYC1TAB12 PO; -OXYC1TAB14 PO
[2021-04-21 19:50] VITALS: BP 174/99
[2021-04-21 21:12] LABS: BASOPHILS % (AUTO) 1 % (0-1); EOSINOPHILS % (AUTO) 2 % (1-7); LYMPHOCYTES % (AUTO) 34 % (22-44); MEAN CORPUSCULAR HEMOGLOBIN 34.2 pg (27.5-34.5); MEAN PLATELET VOLUME 6.9 fL (7.4-10.4); MONOCYTES % (AUTO) 6 % (2-9); NEUTROPHILS % (AUTO) 58 % (42-75); PLATELET COUNT 270 x10^3/uL (130-400); RED BLOOD COUNT 4.74 x10^6/uL (4.38-5.82); RED CELL DISTRIBUTION WIDTH 14.2 % (9.4-14.8)
[2021-04-21 21:18] LABS: ALANINE AMINOTRANSFERASE 43 U/L (12-78); ALBUMIN 3.1 g/dL (3.4-5.0); ANION GAP 9 mmol/L (5-15); CALCIUM 8.4 mg/dL (8.5-10.1); CHLORIDE 100 mmol/L (98-107); CREATININE 0.62 mg/dL (0.7-1.3)
[2021-04-21 21:20] LABS: ALKALINE PHOSPHATASE 128 U/L (45-117); BILIRUBIN,TOTAL 0.4 mg/dL (0.2-1.0); TOTAL PROTEIN 6.7 g/dL (6.4-8.2)
--- NOTE | 2021-04-21 22:21 | NUR ---
PT MOVED TO ROOM
[2021-04-21] MEDS ORDERED: KETOROLAC 30 MG/1 ML IM ONE (22:30)
[2021-04-21] MEDS ORDERED: GABAPENTIN 300 MG CAPSULE PO ONE (22:30)
--- NOTE | 2021-04-21 22:32 | NUR ---
Gabapentin cancelled by phramacy due to anaphalatic rxn on file
[2021-04-21] MEDS ORDERED: KETOROLAC 30 MG/1 ML ONE (22:42)
== END 2021-04-21 23:13 | disposition home or self-care (01) ==
LOC: ED 19:45
DX: G89.29 Other chronic pain (principal); M79.671 Pain in right foot; I70.221 Atherosclerosis of native arteries of extremities with rest pain, right leg; F17.210 Nicotine dependence, cigarettes, uncomplicated
CPT/HCPCS: 36415; 80053; 85025; 96372; 99283; 99406; J1885

== ENCOUNTER 2021-05-01 06:04 | Inpatient (IN) | payer MEDICAID ==
[~2021-05-01] VITALS: Ht 177.8 cm; Wt 90.6 kg
[2021-05-01] MEDS ORDERED: OXYcodone 5 MG/5 ML ORAL.SOL UDC PO PRN (06:30)
[2021-05-01] MEDS ORDERED: morphine SULFATE 10 MG/ML, 1ML IVPush PRN (06:30)
[2021-05-01] MEDS ORDERED: ACETAMINOPHEN 325 MG TABLET PO PRN (06:30)
[2021-05-01] MEDS ORDERED: LACTATED RINGERS 1,000 ML IV SCH (06:30)
[2021-05-01] MEDS ORDERED: MEPERIDINE/PF 25MG/0.5ML IVPush PRN (06:30)
[2021-05-01] MEDS ORDERED: CHLORHEXIDINE 15 ML UDC PO ONE (06:30)
[2021-05-01] MEDS ORDERED: hydrALAzine 20 MG/ML, 1ML IV PRN (06:30)
[2021-05-01] MEDS ORDERED: PROMETHAZINE 25 MG/ML, 1ML IVPush PRN (06:30)
[2021-05-01] MEDS ORDERED: EPINEPHRINE 1 MG/ML, 1ML ONE (06:34)
[2021-05-01] MEDS ORDERED: BUPIVACAINE/PF 0.5% ONE (06:34)
[2021-05-01] MEDS ORDERED: FENTANYL PF 250 MCG/5ML ONE ×3 (06:48→08:58)
[2021-05-01 06:57] VITALS: BP 142/100
[2021-05-01] MEDS ORDERED: VANCOMYCIN 1,000 MG ONE (07:17)
[2021-05-01] MEDS ORDERED: CEFAZOLIN 1,000 MG ONE (07:48)
[2021-05-01] MEDS ORDERED: PROPOFOL 10 MG/ML, 20ML ONE ×2 (07:48→10:58)
[2021-05-01] MEDS ORDERED: NEOSTIGMINE 1 MG/ML, 10ML ONE (07:48)
[2021-05-01] MEDS ORDERED: ROCURONIUM 10MG/ML,5ML ONE ×2 (07:48→07:49)
[2021-05-01] MEDS ORDERED: GLYCOPYRROLATE 0.2MG/1ML, 5ML ONE (07:48)
[2021-05-01] MEDS ORDERED: LABETALOL 5MG/ML, 20ML ONE ×2 (08:11→11:52)
[2021-05-01] MEDS ORDERED: FENTANYL PF 100 MCG/2ML ONE ×4 (11:00→12:07)
[2021-05-01] MEDS: FENTANYL PF 100 MCG/2ML IV PRN ×5 (11:34→12:16)
[2021-05-01] MEDS ORDERED: OXYcodone 5 MG/5 ML ORAL.SOL UDC ONE (11:40)
[2021-05-01] MEDS: LABETALOL 5MG/ML, 20ML IV PRN ×3 (11:54→12:53)
[2021-05-01] MEDS ORDERED: HYDROmorphone 2 MG/ML, 1ML ONE (12:08)
[2021-05-01] MEDS: HYDROmorphone 1 MG/ML, 1ML INJ IVPush PRN ×3 (12:25→13:11)
[2021-05-01] MEDS ORDERED: METHOCARBAMOL 1,000 MG in DEXTROSE 5% 100 ML IV PRN (12:30)
[2021-05-01] MEDS ORDERED: OXYcodone/APAP 5/325MG TABLET PO PRN (15:00)
[2021-05-01] MEDS ORDERED: ONDANSETRON 2MG/ML, 2ML IV PRN (15:00)
[2021-05-01] MEDS ORDERED: MORPHINE SULFATE 4 MG/ML, 1ML ONE ×2 (15:41→16:04)
[2021-05-01] MEDS: morphine SULFATE 10 MG/ML, 1ML IV PRN ×5 (15:44→22:28)
[2021-05-01] MEDS: POTASSIUM CHLORIDE 20 MEQ in LACTATED RINGERS 1,000 ML IV SCH (16:29)
[2021-05-01] MEDS ORDERED: HYDROmorphone 2 MG/ML, 1ML IVPush PRN (18:00)
[2021-05-01] MEDS: OXYcodone/APAP 10/325MG TABLET PO PRN ×2 (18:19→23:14)
[2021-05-01 19:14] VITALS: BP 144/92
[2021-05-01] MEDS: NICOTINE 21 MG/24 HR PATCH.TD24 TD SCH (19:57)
[2021-05-01] MEDS: CEFOTETAN PMX 1GM/50ML 50 ML IVPB SCH (20:01)
[2021-05-02] VITALS (8 sets, daily range): BP systolic 117–142; BP diastolic 73–96
[2021-05-02] MEDS ORDERED: HYDROmorphone 2 MG/ML, 1ML ONE (00:12)
[2021-05-02] MEDS: HYDROmorphone 2 MG/ML, 1ML IVPush PRN ×2 (00:16→04:10)
[2021-05-02] MEDS: OXYcodone/APAP 10/325MG TABLET PO PRN ×4 (03:15→21:35)
[2021-05-02] MEDS: POTASSIUM CHLORIDE 20 MEQ in LACTATED RINGERS 1,000 ML IV SCH ×3 (03:15→18:12)
[2021-05-02 05:05] LABS: BASOPHILS % (AUTO) 0 % (0-1); EOSINOPHILS % (AUTO) 1 % (1-7); LYMPHOCYTES % (AUTO) 15 % (22-44); MEAN CORPUSCULAR HEMOGLOBIN 34.6 pg (27.5-34.5); MEAN CORPUSCULAR HGB CONC 34.4 g/dL (33.2-36.2); MEAN PLATELET VOLUME 6.4 fL (7.4-10.4); MONOCYTES % (AUTO) 8 % (2-9); NEUTROPHILS % (AUTO) 77 % (42-75); PLATELET COUNT 298 x10^3/uL (130-400); RED BLOOD COUNT 4.57 x10^6/uL (4.38-5.82); RED CELL DISTRIBUTION WIDTH 14.6 % (9.4-14.8)
[2021-05-02] MEDS: LORazepam 2 MG/ML, 1ML IVPush PRN ×3 (06:19→23:34)
[2021-05-02] MEDS: CEFOTETAN PMX 1GM/50ML 50 ML IVPB SCH (07:42)
[2021-05-02] MEDS: LISINOPRIL 20 MG TABLET PO SCH (08:56)
[2021-05-02] MEDS ORDERED: ENOXAPARIN 40 MG/0.4 ML SQ SCH (09:00)
[2021-05-02] MEDS ORDERED: NICOTINE 21 MG/24 HR PATCH.TD24 TD SCH (18:00)
[2021-05-02] MEDS: NICOTINE 21 MG/24 HR PATCH.TD24 TD SCH (21:37)
[2021-05-03] VITALS (7 sets, daily range): BP systolic 91–114; BP diastolic 66–79
[2021-05-03] MEDS: OXYcodone/APAP 10/325MG TABLET PO PRN ×5 (01:33→23:31)
[2021-05-03] MEDS ORDERED: FUROSEMIDE 20 MG/2 ML IV ONE (04:00)
[2021-05-03 04:57] LABS: BASOPHILS % (AUTO) 0 % (0-1); EOSINOPHILS % (AUTO) 1 % (1-7); LYMPHOCYTES % (AUTO) 11 % (22-44); MEAN CORPUSCULAR HEMOGLOBIN 34.4 pg (27.5-34.5); MEAN PLATELET VOLUME 6.5 fL (7.4-10.4); MONOCYTES % (AUTO) 8 % (2-9); NEUTROPHILS % (AUTO) 80 % (42-75); PLATELET COUNT 267 x10^3/uL (130-400); RED BLOOD COUNT 4.03 x10^6/uL (4.38-5.82); RED CELL DISTRIBUTION WIDTH 14.7 % (9.4-14.8)
[2021-05-03 05:06] LABS: ALBUMIN 2.4 g/dL (3.4-5.0); ANION GAP 3 mmol/L (5-15); CALCIUM 8.3 mg/dL (8.5-10.1); CHLORIDE 99 mmol/L (98-107); CREATININE 0.93 mg/dL (0.7-1.3)
[2021-05-03 05:17] LABS: CHOL/HDL RATIO 5.3; CHOLESTEROL, TOTAL 122 mg/dL (140-239); HDL CHOL % 19 % (26-37); HDL CHOLESTEROL (DIRECT) 23 mg/dL (40-60); LDL CHOLESTEROL,CALCULATED 71 mg/dL (54-169); LDL/HDL RATIO 3.1 (0.5-3.0); TRIGLYCERIDES 139 mg/dL (50-200); TROPONIN I 0.124 ng/mL (0.000-0.045); VLDL CHOLESTEROL 28 mg/dL (0-25)
[2021-05-03 10:07] LABS: FIO2 ROOM AIR %
[2021-05-03] MEDS ORDERED: SODIUM POLYSTYRENE SULFONATE ORAL SUSP PO ONE (10:30)
[2021-05-03] MEDS ORDERED: HALOPERIDOL 5 MG/ML IM PRN ×2 (10:30→15:47)
[2021-05-03] MEDS: ASPIRIN 81 MG TABLET EC PO SCH (11:03)
[2021-05-03] MEDS: ACETAMINOPHEN 325 MG TABLET PO SCH ×3 (11:03→20:30)
[2021-05-03] MEDS: LISINOPRIL 20 MG TABLET PO SCH (11:03)
[2021-05-03] MEDS: CARVEDILOL 3.125 MG TABLET PO SCH ×2 (11:04→17:32)
[2021-05-03 12:47] LABS: TROPONIN I 0.128 ng/mL (0.000-0.045)
[2021-05-03] MEDS ORDERED: hydrOXyzine 10MG TABLET PO PRN (16:00)
[2021-05-03] MEDS ORDERED: ALBUTEROL HFA 90 MCG/SPRAY INH PRN (17:30)
[2021-05-03] MEDS: NICOTINE 21 MG/24 HR PATCH.TD24 TD SCH (20:45)
[2021-05-03] MEDS: APIXABAN 5 MG TABLET PO SCH (21:00)
[2021-05-03] MEDS ORDERED: ATORVASTATIN 80 MG TABLET PO SCH (21:00)
[2021-05-04] MEDS: DILTIAZEM 5 MG/ML, 5ML IVPush PRN ×4 (00:24→01:15)
[2021-05-04] MEDS: HYDROmorphone 2 MG/ML, 1ML IVPush PRN ×2 (01:43→05:41)
[2021-05-04] MEDS: ACETAMINOPHEN 325 MG TABLET PO SCH ×2 (02:30→08:52)
[2021-05-04] MEDS ORDERED: DILTIAZEM 125 MG in SODIUM CHLORIDE 0.9% 100 ML IV SCH (03:00)
[2021-05-04] MEDS ORDERED: FUROSEMIDE 20 MG/2 ML IV ONE (03:00)
[2021-05-04] MEDS ORDERED: LORazepam 2 MG/ML, 1ML IVPush PRN ×2 (03:00→09:00)
[2021-05-04] MEDS ORDERED: FILTER 0.22 MICRON IV PRN (05:00)
[2021-05-04] MEDS ORDERED: AMIODARONE 150 MG in DEXTROSE 5% 100 ML IV ONE (05:00)
[2021-05-04 05:01] VITALS: BP 105/72
[2021-05-04 05:06] LABS: BASOPHILS % (AUTO) 0 % (0-1); EOSINOPHILS % (AUTO) 2 % (1-7); LYMPHOCYTES % (AUTO) 9 % (22-44); MEAN CORPUSCULAR HEMOGLOBIN 34.6 pg (27.5-34.5); MEAN CORPUSCULAR HGB CONC 34.2 g/dL (33.2-36.2); MEAN PLATELET VOLUME 6.7 fL (7.4-10.4); MONOCYTES % (AUTO) 7 % (2-9); NEUTROPHILS % (AUTO) 82 % (42-75); PLATELET COUNT 276 x10^3/uL (130-400); RED BLOOD COUNT 3.78 x10^6/uL (4.38-5.82); RED CELL DISTRIBUTION WIDTH 14.6 % (9.4-14.8)
[2021-05-04 05:15] LABS: ANION GAP 5 mmol/L (5-15); CALCIUM 8.6 mg/dL (8.5-10.1); CHLORIDE 99 mmol/L (98-107); CREATININE 0.87 mg/dL (0.7-1.3)
[2021-05-04 05:27] VITALS: BP 111/80
[2021-05-04] MEDS ORDERED: AMIODARONE 450 MG in DEXTROSE 5% 241 ML IV PRN (05:30)
[2021-05-04] MEDS: CARVEDILOL 3.125 MG TABLET PO SCH (06:21)
[2021-05-04] MEDS: ASPIRIN 81 MG TABLET EC PO SCH (06:21)
[2021-05-04 08:19] VITALS: BP 105/72
[2021-05-04] MEDS ORDERED: HYDROmorphone 2 MG/ML, 1ML IVPush PRN (08:30)
[2021-05-04] MEDS: LISINOPRIL 20 MG TABLET PO SCH (08:52)
[2021-05-04] MEDS: APIXABAN 5 MG TABLET PO SCH (08:52)
[2021-05-04] MEDS: OXYcodone/APAP 10/325MG TABLET PO PRN (09:01)
[2021-05-04] MEDS ORDERED: CARVEDILOL 3.125 MG TABLET PO SCH (18:00)
== END 2021-05-04 10:48 | disposition left against medical advice (07) | DRG 224 ==
LOC: OUT 06:04 → 4NE 13:40 → OUT 14:29 → 4EST 05-03 03:19 → 5SO 05-04 04:54
PROVIDERS: ADMIT Surgery; ATTEND Surgery
PROC: 0HB7XZZ Excision of Abdomen Skin, External Approach (ICD-10-PCS; 2021-05-01)
PROC: 0KXL0Z6 Transfer Left Abdomen Muscle, Transverse Rectus Abdominis Myocutaneous Flap, Open Approach (ICD-10-PCS; 2021-05-01)
PROC: 8E0WXCZ Robotic Assisted Procedure of Trunk Region (ICD-10-PCS; 2021-05-01)
PROC: 0DNU0ZZ Release Omentum, Open Approach (ICD-10-PCS; principal; 2021-05-01 07:30)
DX: K43.2 Incisional hernia without obstruction or gangrene (principal); J96.01 Acute respiratory failure with hypoxia; I21.A1 Myocardial infarction type 2; J81.1 Chronic pulmonary edema; I95.9 Hypotension, unspecified; E87.1 Hypo-osmolality and hyponatremia; I48.91 Unspecified atrial fibrillation; I25.10 Atherosclerotic heart disease of native coronary artery without angina pectoris; I73.9 Peripheral vascular disease, unspecified; G89.29 Other chronic pain; F17.210 Nicotine dependence, cigarettes, uncomplicated; I47.1 Supraventricular tachycardia; E87.5 Hyperkalemia; K66.0 Peritoneal adhesions (postprocedural) (postinfection); F41.9 Anxiety disorder, unspecified; E66.9 Obesity, unspecified; Z20.822 Contact with and (suspected) exposure to COVID-19; Z89.512 Acquired absence of left leg below knee; Z86.73 Personal history of transient ischemic attack (TIA), and cerebral infarction without residual deficits; Z86.14 Personal history of Methicillin resistant Staphylococcus aureus infection; Z82.49 Family history of ischemic heart disease and other diseases of the circulatory system; Z80.0 Family history of malignant neoplasm of digestive organs; Z86.711 Personal history of pulmonary embolism; Z90.49 Acquired absence of other specified parts of digestive tract; Z91.19 Patient's noncompliance with other medical treatment and regimen; I25.2 Old myocardial infarction; Z95.1 Presence of aortocoronary bypass graft
CPT/HCPCS: 36415; 36600; 74018; S0020; 71045; 80048; 80061; 82040; 82330; 82803; 83735; 83880; 84100; 84443; 84484; 85025; 87635; 93005; G0378; J0171; J0690; J1170; J1650; J2405; J2704; J2710; J3010; J3370; J3480; J7060; C1781; J0282; J1940; J2060; J2270; J2800; J7120